=== PATIENT | male | born 1945 | race African-American/Black ===

== ENCOUNTER 2017-01-17 22:47 | Inpatient (IN) ==
[2017-01-17 23:53] LABS: Basophils % 0.3 % (0.0-0.8); Eosinophils # 0.1 10*3/uL (0.0-0.87); Eosinophils % 1.3 % (0.00-10.9); Hematocrit 33.2 VOL% (42.0-52.0); Hemoglobin 10.9 GM/DL (14.0-18.0); Immature Granulocytes % 0.4 %; Immature Granulocytes Absolute 0.03 #; Lymphocytes # 0.8 10*3/uL (1.4-4.0); Mean Corpuscular HGB Conc 32.8 GM/DL (32-36); Mean Corpuscular Hemoglobin 28 PG (27-34); Mean Corpuscular Volume 84.1 FL (87-102); Mean Platelet Volume 10.9 FL (9.6-12.0); Monocytes # 0.7 10*3/uL (0.11-0.8); Monocytes % 9.6 % (1.7-12.7); Neutrophils # 5.6 10*3/uL (1.4-7.4); Neutrophils % 77.4 % (38.7-73.9); Platelet Count 261 T/CUMM (130-400); Red Blood Count 3.95 MC/CUMM (3.8-5.5); Red Cell Distribution Width 17.8 % (9.3-17.3); White Blood Count 7.2 T/CUMM (4-12)
[2017-01-17 23:57] LABS: VBG Base Excess 5.3 MEQ/L (0-4); VBG HCO3 29.2 MEQ/L (24-28); VBG PCO2 45.5 MMHG (41-51); VBG PH 7.432
[2017-01-18 00:20] LABS: Alanine Aminotransferase 44 U/L (16-61); Albumin 3.4 G/DL (3.4-5.0); Alkaline Phosphatase 112 U/L (45-117); Aspartate Amino Transferase 25 U/L (0-37); Bilirubin,Total < 0.39 MG/DL (0.2-1.0); Blood Urea Nitrogen 34 MG/DL (7-18); Calcium 9.1 MG/DL (8.5-10.1); Glucose 97 MG/DL (74-106); Osmolality,Calculated 286.4 MOS/KG (273-304); Potassium 3.5 MMOL/L (3.5-5.1); Sodium 140 MMOL/L (136-145); Total Protein 7.2 G/DL (6.4-8.3)
[2017-01-18] MEDS ORDERED: PANTOPRAZOLE 40 MG VIAL IV STA (02:35)
[2017-01-18] MEDS ORDERED: PANTOPRAZOLE 40 MG VIAL IV ONE (04:56)
[2017-01-18] MEDS ORDERED: ONDANSETRON 4 MG/2 ML VIAL IV PRN (05:41)
[2017-01-18] MEDS: MORPHINE 2 MG/1 ML SYRINGE IV PRN ×2 (08:25→18:04)
[2017-01-18] MEDS: ENOXAPARIN 40 MG/0.4 ML SYRINGE SUBCUT SCH (08:25)
[2017-01-18] MEDS: SODIUM CHLORIDE 0.9% 1,000 ML IV SCH ×2 (08:25→18:04)
[2017-01-18 08:31] LABS: Amorphous Crystals,Urine Few /HPF (Few); Apearance,Urine CLOUDY (Clear); Bilirubin,Urine Negative (Negative); Blood, Urine Negative (Negative); Glucose,Urine (UA) Negative (Negative); Ketones,Urine Negative (Negative); Nitrite,Urine Negative (Negative); Protein,Urine Negative; RBC,Urine 4 /HPF (0-4); Urine Color Yellow (Yellow); Urine Specific Gravity 1.028 (1.001-1.035); Urine Urobilinogen < 2.0 EU/DL (0.2-1.0); WBC,Urine 4 /HPF (0-6)
[2017-01-18] MEDS: LEVOFLOXACIN INJ 750 MG in PREMIX 1 EACH IV SCH (08:33)
[2017-01-18 08:46] LABS: Magnesium 2.7 MG/DL (1.8-2.4); Risk Ratio 2.39; VLDL CHOLESTEROL 23.8 MG/DL
[2017-01-18] MEDS: ALBUTEROL/IPRATROPIUM 3 ML NEB RESP TX SCH ×2 (13:30→19:21)
[2017-01-18] MEDS: clonazePAM 0.5 MG TABLET PEG PRN (14:18)
[2017-01-18] MEDS: ATORVASTATIN 40 MG TABLET PEG SCH (20:43)
[2017-01-19] MEDS: ALBUTEROL/IPRATROPIUM 3 ML NEB RESP TX SCH ×4 (00:24→19:05)
[2017-01-19] MEDS: clonazePAM 0.5 MG TABLET PEG PRN ×2 (01:24→21:46)
[2017-01-19] MEDS: SODIUM CHLORIDE 0.9% 1,000 ML IV SCH ×3 (02:43→21:05)
[2017-01-19 05:31] LABS: Basophils % 0.1 % (0.0-0.8); Eosinophils # 0.2 10*3/uL (0.0-0.87); Eosinophils % 2.2 % (0.00-10.9); Hematocrit 31.4 VOL% (42.0-52.0); Immature Granulocytes % 0.4 %; Immature Granulocytes Absolute 0.03 #; Lymphocytes # 0.7 10*3/uL (1.4-4.0); Mean Corpuscular HGB Conc 31.8 GM/DL (32-36); Mean Corpuscular Hemoglobin 27 PG (27-34); Mean Corpuscular Volume 85.3 FL (87-102); Mean Platelet Volume 12.2 FL (9.6-12.0); Monocytes # 0.5 10*3/uL (0.11-0.8); Monocytes % 7.7 % (1.7-12.7); Neutrophils # 5.5 10*3/uL (1.4-7.4); Neutrophils % 79.6 % (38.7-73.9); Platelet Count 264 T/CUMM (130-400); Red Blood Count 3.68 MC/CUMM (3.8-5.5); Red Cell Distribution Width 17.9 % (9.3-17.3)
[2017-01-19 05:56] LABS: Bilirubin,Total 0.7 MG/DL (0.2-1.0); Calcium 8.3 MG/DL (8.5-10.1); Potassium 3.9 MMOL/L (3.5-5.1); Total Protein 6.7 G/DL (6.4-8.3)
[2017-01-19] MEDS: LEVOFLOXACIN INJ 750 MG in PREMIX 1 EACH IV SCH (05:59)
[2017-01-19 06:01] LABS: Calcium 8.5 MG/DL (8.5-10.1); Potassium 3.9 MMOL/L (3.5-5.1); Prealbumin 24.8 MG/DL (20-40)
[2017-01-19] MEDS: ENOXAPARIN 40 MG/0.4 ML SYRINGE SUBCUT SCH (09:15)
[2017-01-19] MEDS: TAMSULOSIN 0.4 MG CAPSULE PO SCH (09:15)
[2017-01-19] MEDS: amLODIPine 5 MG TABLET PEG SCH (09:16)
[2017-01-19] MEDS: FUROSEMIDE 40 MG TABLET PEG SCH (09:16)
[2017-01-19] MEDS: ASPIRIN 325 MG TABLET PEG SCH (09:16)
[2017-01-19] MEDS: predniSONE 5 MG TABLET PEG SCH (09:16)
[2017-01-19] MEDS: MORPHINE 2 MG/1 ML SYRINGE IV PRN (12:39)
[2017-01-19] MEDS: POLYETHYLENE GLYCOL POWDER 17 GM PACK PEG SCH ×3 (14:20→21:47)
[2017-01-19] MEDS ORDERED: MAGNESIUM CITRATE 300 ML BOTTLE PO ONE (21:00)
[2017-01-19] MEDS: ATORVASTATIN 40 MG TABLET PEG SCH (21:46)
[2017-01-20] MEDS: ALBUTEROL/IPRATROPIUM 3 ML NEB RESP TX SCH ×4 (00:48→19:14)
[2017-01-20] MEDS: LEVOFLOXACIN INJ 750 MG in PREMIX 1 EACH IV SCH (05:55)
[2017-01-20] MEDS: SODIUM CHLORIDE 0.9% 1,000 ML IV SCH ×2 (08:38→13:12)
[2017-01-20] MEDS: TAMSULOSIN 0.4 MG CAPSULE PO SCH (08:52)
[2017-01-20] MEDS: FUROSEMIDE 40 MG TABLET PEG SCH (08:52)
[2017-01-20] MEDS: ENOXAPARIN 40 MG/0.4 ML SYRINGE SUBCUT SCH (08:52)
[2017-01-20] MEDS: ASPIRIN 325 MG TABLET PEG SCH (08:52)
[2017-01-20] MEDS: clonazePAM 0.5 MG TABLET PEG PRN ×2 (08:53→23:39)
[2017-01-20] MEDS: amLODIPine 5 MG TABLET PEG SCH (08:53)
[2017-01-20] MEDS: predniSONE 5 MG TABLET PEG SCH (08:53)
[2017-01-20] MEDS: POLYETHYLENE GLYCOL POWDER 17 GM PACK PEG SCH ×4 (08:53→20:56)
[2017-01-20] MEDS: MORPHINE 2 MG/1 ML SYRINGE IV PRN ×2 (11:00→23:39)
[2017-01-20] MEDS ORDERED: SODIUM CHLORIDE 0.9% 1,000 ML IV SCH (18:18)
[2017-01-20] MEDS ORDERED: hydrALAZINE 25 MG TABLET ONE (20:50)
[2017-01-20] MEDS: ATORVASTATIN 40 MG TABLET PEG SCH (20:55)
[2017-01-21] MEDS: ALBUTEROL/IPRATROPIUM 3 ML NEB RESP TX SCH ×4 (00:23→19:18)
[2017-01-21] MEDS: LEVOFLOXACIN INJ 750 MG in PREMIX 1 EACH IV SCH (06:45)
[2017-01-21] MEDS: FUROSEMIDE 40 MG TABLET PEG SCH (08:34)
[2017-01-21] MEDS: predniSONE 5 MG TABLET PEG SCH (08:34)
[2017-01-21] MEDS: TAMSULOSIN 0.4 MG CAPSULE PO SCH (08:34)
[2017-01-21] MEDS: clonazePAM 0.5 MG TABLET PEG PRN ×2 (08:34→21:28)
[2017-01-21] MEDS: amLODIPine 10 MG TABLET PEG SCH (08:34)
[2017-01-21] MEDS: POLYETHYLENE GLYCOL POWDER 17 GM PACK PEG SCH (08:52)
[2017-01-21] MEDS: SODIUM CHLORIDE 0.45% 1,000 ML IV SCH ×2 (08:54→21:28)
[2017-01-21 10:05] LABS: Basophils % 0.4 % (0.0-0.8); Eosinophils # 0.2 10*3/uL (0.0-0.87); Eosinophils % 2.8 % (0.00-10.9); Hemoglobin 11.9 GM/DL (14.0-18.0); Immature Granulocytes % 0.3 %; Immature Granulocytes Absolute 0.02 #; Lymphocytes # 0.7 10*3/uL (1.4-4.0); Lymphocytes % 10.2 % (21.2-54.2); Mean Corpuscular HGB Conc 33.1 GM/DL (32-36); Mean Corpuscular Hemoglobin 28 PG (27-34); Mean Corpuscular Volume 83.7 FL (87-102); Monocytes # 0.6 10*3/uL (0.11-0.8); Monocytes % 8.5 % (1.7-12.7); Neutrophils # 5.5 10*3/uL (1.4-7.4); Neutrophils % 77.8 % (38.7-73.9); Platelet Count 277 T/CUMM (130-400); Red Cell Distribution Width 17.5 % (9.3-17.3)
[2017-01-21] MEDS ORDERED: POLYETHYLENE GLYCOL 3350/ELECTROLYTES 4,000 ML BOTTLE PEG ONE (18:00)
[2017-01-21] MEDS ORDERED: POLYETHYLENE GLYCOL 3350/ELECTROLYTES 4,000 ML BOTTLE PO ONE (18:00)
[2017-01-21] MEDS ORDERED: SKIN HEALING OINT (AQUAPHOR) 50 GM TUBE TOP PRN (18:39)
[2017-01-21] MEDS: ATORVASTATIN 40 MG TABLET PEG SCH (21:27)
[2017-01-22] MEDS: ALBUTEROL/IPRATROPIUM 3 ML NEB RESP TX SCH ×4 (00:31→19:27)
[2017-01-22 06:31] LABS: Calcium 8.6 MG/DL (8.5-10.1); Magnesium 2.2 MG/DL (1.8-2.4); Osmolality,Calculated 280.1 MOS/KG (273-304); Phosphorous 3.2 MG/DL (2.5-4.9); Potassium 3.5 MMOL/L (3.5-5.1); Prealbumin 22.5 MG/DL (20-40)
[2017-01-22] MEDS ORDERED: LIDOCAINE 100 MG/5 ML SYRINGE ONE (09:00)
[2017-01-22] MEDS ORDERED: PROPOFOL 200 MG/20 ML VIAL IV ONE (09:00)
[2017-01-22] MEDS: amLODIPine 10 MG TABLET PEG SCH (10:50)
[2017-01-22] MEDS: FUROSEMIDE 40 MG TABLET PEG SCH (10:50)
[2017-01-22] MEDS: TAMSULOSIN 0.4 MG CAPSULE PO SCH (10:50)
[2017-01-22] MEDS: LEVOFLOXACIN INJ 750 MG in PREMIX 1 EACH IV SCH (10:50)
[2017-01-22] MEDS: predniSONE 5 MG TABLET PEG SCH (10:50)
[2017-01-22] MEDS: SODIUM CHLORIDE 0.45% 1,000 ML IV SCH (10:59)
[2017-01-22] MEDS: clonazePAM 0.5 MG TABLET PEG PRN (14:54)
[2017-01-22] MEDS: ATORVASTATIN 40 MG TABLET PEG SCH (21:16)
[2017-01-22] MEDS: WHEAT DEXTRIN POWDER 244 GM BOTTLE PEG SCH (21:22)
[2017-01-23] MEDS: ALBUTEROL/IPRATROPIUM 3 ML NEB RESP TX SCH ×2 (00:52→07:00)
[2017-01-23] MEDS: SODIUM CHLORIDE 0.45% 1,000 ML IV SCH (06:06)
[2017-01-23] MEDS: LEVOFLOXACIN INJ 750 MG in PREMIX 1 EACH IV SCH (06:06)
[2017-01-23] MEDS: predniSONE 5 MG TABLET PEG SCH (08:31)
[2017-01-23] MEDS: amLODIPine 10 MG TABLET PEG SCH (08:31)
[2017-01-23] MEDS: clonazePAM 0.5 MG TABLET PEG PRN (08:31)
[2017-01-23] MEDS: TAMSULOSIN 0.4 MG CAPSULE PO SCH (08:31)
[2017-01-23] MEDS: FUROSEMIDE 40 MG TABLET PEG SCH (08:31)
[2017-01-23] MEDS: WHEAT DEXTRIN POWDER 244 GM BOTTLE PEG SCH (08:31)
[2017-01-23 11:38] VITALS: BP 120/71
== END 2017-01-23 12:30 | DRG 388 ==
LOC: EDUNIT# → N.ED 22:47 → SUATTDRO 01-18 03:25 → N.EDINP 01-18 03:25 → N.5E 01-18 04:53
PROVIDERS: ADMIT Internal Medicine; ATTEND Internal Medicine

== ENCOUNTER 2017-02-20 10:42 | Inpatient (IN) ==
[2017-02-20] MEDS ORDERED: ASPIRIN 325 MG TABLET PO STA (11:06)
[2017-02-20] MEDS ORDERED: SODIUM CHLORIDE 0.9% 1,000 ML IV STA (11:06)
[2017-02-20] MEDS ORDERED: MORPHINE 2 MG/1 ML SYRINGE IV STA ×2 (11:06→11:43)
[2017-02-20] MEDS ORDERED: ONDANSETRON 4 MG/2 ML VIAL IV STA (11:06)
[2017-02-20 11:17] LABS: Basophils % 0.3 % (0.0-0.8); Eosinophils # 0.1 10*3/uL (0.0-0.87); Eosinophils % 0.9 % (0.00-10.9); Immature Granulocytes % 0.3 %; Immature Granulocytes Absolute 0.03 #; Lymphocytes # 0.6 10*3/uL (1.4-4.0); Lymphocytes % 6.6 % (21.2-54.2); Mean Corpuscular HGB Conc 32.4 GM/DL (32-36); Mean Corpuscular Hemoglobin 27 PG (27-34); Mean Corpuscular Volume 84.2 FL (87-102); Mean Platelet Volume 11.1 FL (9.6-12.0); Monocytes # 0.6 10*3/uL (0.11-0.8); Monocytes % 6.8 % (1.7-12.7); Neutrophils # 7.8 10*3/uL (1.4-7.4); Neutrophils % 85.1 % (38.7-73.9); Platelet Count 290 T/CUMM (130-400); Red Blood Count 4.04 MC/CUMM (3.8-5.5); Red Cell Distribution Width 18.6 % (9.3-17.3); White Blood Count 9.2 T/CUMM (4-12)
[2017-02-20] MEDS ORDERED: MORPHINE 2 MG/1 ML SYRINGE ONE ×2 (11:17→11:40)
[2017-02-20] MEDS ORDERED: ASPIRIN 325 MG TABLET ONE (11:17)
[2017-02-20] MEDS ORDERED: ONDANSETRON 4 MG/2 ML VIAL ONE (11:17)
[2017-02-20] MEDS ORDERED: LORazepam 2 MG/1 ML VIAL ONE (11:24)
[2017-02-20 11:37] LABS: PT Patient Result 10.9 SECS; Partial Thromboplastin Time 24.4 SECS (0-40)
[2017-02-20] MEDS ORDERED: LORazepam 2 MG/1 ML VIAL IV STA (11:43)
[2017-02-20 11:57] LABS: Albumin 3.8 G/DL (3.4-5.0); Bilirubin,Total 0.5 MG/DL (0.2-1.0); Calcium 9.6 MG/DL (8.5-10.1); Osmolality,Calculated 291.1 MOS/KG (273-304); Potassium 3.7 MMOL/L (3.5-5.1); Total Protein 8.6 G/DL (6.4-8.3)
[2017-02-20] MEDS ORDERED: ENOXAPARIN 60 MG/0.6 ML SYRINGE SUBCUT STA (12:54)
[2017-02-20 13:01] LABS: ABG Base Excess -0.2 MMOL/L (-2.5-2.5); ABG HCO3 24.2 MMOL/L (20-26); ABG Oxygen Saturation 96.7 % (95-100); ABG PCO2 39.2 MM HG (35-48); ABG PH 7.402 (7.35-7.45); ABG PO2 87.7 MM HG (80-95); ABG TCO2 22.1 MMOL/L (23-27)
[2017-02-20] MEDS ORDERED: ENOXAPARIN 60 MG/0.6 ML SYRINGE ONE (13:44)
[2017-02-20] MEDS ORDERED: LACTULOSE 20 GM/30 ML UDCUP PEG PRN (13:47)
[2017-02-20] MEDS: MORPHINE 2 MG/1 ML SYRINGE IV PRN (15:45)
[2017-02-20] MEDS ORDERED: cefTRIAXone 1,000 MG in SYRINGE 1 EACH IV SCH (16:00)
[2017-02-20] MEDS: LORazepam 2 MG/1 ML VIAL IV PRN (16:00)
[2017-02-20] MEDS ORDERED: FUROSEMIDE 40 MG/4 ML VIAL IV ONE (17:59)
[2017-02-20] MEDS ORDERED: FUROSEMIDE 40 MG/4 ML VIAL ONE (18:07)
[2017-02-20] MEDS: methylPREDNISolone SOD SUC 40 MG/1 ML VIAL IV SCH (18:14)
[2017-02-20 19:28] LABS: Apearance,Urine CLEAR (Clear); Bilirubin,Urine Negative (Negative); Blood, Urine Negative (Negative); Glucose,Urine (UA) Negative (Negative); Ketones,Urine Negative (Negative); Mucus,Urine Occasional /LPF (Occasional); Nitrite,Urine Negative (Negative); Protein,Urine 100 MG/DL; RBC,Urine <1 /HPF (0-4); Urine Color Yellow (Yellow); Urine Urobilinogen < 2.0 EU/DL (0.2-1.0); WBC,Urine 3 /HPF (0-6)
[2017-02-20] MEDS: ALBUTEROL/IPRATROPIUM 3 ML NEB RESP TX SCH (20:31)
[2017-02-20] MEDS: WHEAT DEXTRIN POWDER 244 GM BOTTLE PEG SCH (20:57)
[2017-02-21] MEDS: ALBUTEROL/IPRATROPIUM 3 ML NEB RESP TX SCH ×4 (01:02→19:44)
[2017-02-21] MEDS: methylPREDNISolone SOD SUC 40 MG/1 ML VIAL IV SCH ×3 (01:25→17:33)
[2017-02-21] MEDS ORDERED: ENOXAPARIN 60 MG/0.6 ML SYRINGE SUBCUT SCH (02:00)
[2017-02-21 05:35] LABS: Basophils % 0.1 % (0.0-0.8); Hematocrit 33.2 VOL% (42.0-52.0); Hemoglobin 10.5 GM/DL (14.0-18.0); Immature Granulocytes % 0.4 %; Immature Granulocytes Absolute 0.03 #; Lymphocytes # 0.4 10*3/uL (1.4-4.0); Lymphocytes % 5.2 % (21.2-54.2); Mean Corpuscular HGB Conc 31.6 GM/DL (32-36); Mean Corpuscular Hemoglobin 27 PG (27-34); Mean Corpuscular Volume 83.8 FL (87-102); Mean Platelet Volume 11.4 FL (9.6-12.0); Monocytes # 0.1 10*3/uL (0.11-0.8); Monocytes % 0.7 % (1.7-12.7); Neutrophils # 7.9 10*3/uL (1.4-7.4); Neutrophils % 93.6 % (38.7-73.9); Platelet Count 303 T/CUMM (130-400); Red Blood Count 3.96 MC/CUMM (3.8-5.5); Red Cell Distribution Width 18.4 % (9.3-17.3); White Blood Count 8.5 T/CUMM (4-12)
[2017-02-21 06:08] LABS: Lymphocytes 3 % (20-55); Segmented Neutrophils 95 % (50-85); Total Cells Counted 100
[2017-02-21 06:09] LABS: Hypochromasia 2+; Macrocytosis 1+; Platelet Estimate Adequate; Polychromasia Slight; Target Cells Slight
[2017-02-21 06:10] LABS: Calcium 9.5 MG/DL (8.5-10.1); Osmolality,Calculated 293.8 MOS/KG (273-304); Potassium 4.1 MMOL/L (3.5-5.1)
[2017-02-21] MEDS ORDERED: predniSONE 5 MG TABLET PEG SCH (08:00)
[2017-02-21] MEDS: ASPIRIN 325 MG TABLET PEG SCH (08:14)
[2017-02-21] MEDS: FUROSEMIDE 40 MG TABLET PEG SCH (08:14)
[2017-02-21] MEDS: ENOXAPARIN 40 MG/0.4 ML SYRINGE SUBCUT SCH (08:15)
[2017-02-21] MEDS: POLYETHYLENE GLYCOL POWDER 17 GM PACK PEG SCH (08:15)
[2017-02-21] MEDS: WHEAT DEXTRIN POWDER 244 GM BOTTLE PEG SCH (08:15)
[2017-02-21] MEDS: COLLAGENASE OINT 30 GM TUBE TOP SCH (08:16)
[2017-02-21] MEDS ORDERED: amLODIPine 5 MG TABLET PEG SCH (09:00)
[2017-02-21] MEDS: DOXYCYCLINE HYCLATE 100 MG CAPSULE PO SCH ×2 (09:55→22:31)
[2017-02-21] MEDS: amLODIPine 5 MG TABLET PEG SCH ×2 (09:55→17:33)
[2017-02-21] MEDS: MORPHINE 2 MG/1 ML SYRINGE IV PRN ×3 (10:18→22:30)
[2017-02-21] MEDS ORDERED: hydrALAZINE 20 MG/1 ML VIAL IV ONE (14:52)
[2017-02-21] MEDS: LORazepam 2 MG/1 ML VIAL IV PRN (15:35)
[2017-02-21] MEDS ORDERED: ONDANSETRON 4 MG/2 ML VIAL IV PRN (17:03)
[2017-02-21] MEDS: clonazePAM 0.5 MG TABLET PEG PRN (17:33)
[2017-02-21] MEDS ORDERED: hydrALAZINE 20 MG/1 ML VIAL IV PRN (17:41)
[2017-02-22] MEDS: ALBUTEROL/IPRATROPIUM 3 ML NEB RESP TX SCH ×4 (00:25→19:30)
[2017-02-22] MEDS: methylPREDNISolone SOD SUC 40 MG/1 ML VIAL IV SCH ×3 (01:26→18:03)
[2017-02-22 07:19] LABS: Calcium 9.2 MG/DL (8.5-10.1); Osmolality,Calculated 296.8 MOS/KG (273-304)
[2017-02-22] MEDS: MORPHINE 2 MG/1 ML SYRINGE IV PRN ×3 (08:54→20:39)
[2017-02-22] MEDS: ENOXAPARIN 40 MG/0.4 ML SYRINGE SUBCUT SCH (12:10)
[2017-02-22] MEDS: ASPIRIN 325 MG TABLET PEG SCH (12:19)
[2017-02-22] MEDS: DOXYCYCLINE HYCLATE 100 MG CAPSULE PO SCH ×2 (12:20→20:45)
[2017-02-22] MEDS: FUROSEMIDE 40 MG TABLET PEG SCH (12:20)
[2017-02-22] MEDS: amLODIPine 5 MG TABLET PEG SCH (12:20)
[2017-02-22] MEDS: LORazepam 2 MG/1 ML VIAL IV PRN (22:47)
[2017-02-23] MEDS: ALBUTEROL/IPRATROPIUM 3 ML NEB RESP TX SCH ×2 (01:11→07:45)
[2017-02-23] MEDS: methylPREDNISolone SOD SUC 40 MG/1 ML VIAL IV SCH ×2 (02:11→09:51)
[2017-02-23] MEDS: LORazepam 2 MG/1 ML VIAL IV PRN (02:52)
[2017-02-23] MEDS: MORPHINE 2 MG/1 ML SYRINGE IV PRN (02:56)
[2017-02-23] MEDS: clonazePAM 0.5 MG TABLET PEG PRN (09:50)
[2017-02-23] MEDS: ASPIRIN 325 MG TABLET PEG SCH (09:51)
[2017-02-23] MEDS: DOXYCYCLINE HYCLATE 100 MG CAPSULE PO SCH (09:51)
[2017-02-23] MEDS: amLODIPine 5 MG TABLET PEG SCH (09:51)
[2017-02-23] MEDS: FUROSEMIDE 40 MG TABLET PEG SCH (09:51)
[2017-02-23] MEDS: ENOXAPARIN 40 MG/0.4 ML SYRINGE SUBCUT SCH (09:51)
[2017-02-23] MEDS: POLYETHYLENE GLYCOL POWDER 17 GM PACK PEG SCH (09:51)
[2017-02-23] MEDS: COLLAGENASE OINT 30 GM TUBE TOP SCH (10:41)
[2017-02-23 13:30] VITALS: BP 162/73
[2017-02-24] MEDS ORDERED: INFLUENZA VIRUS VACCINE 0.5 ML SYRINGE IM ONE (09:00)
== END 2017-02-23 13:32 | DRG 192 ==
LOC: EDBD → EDUNIT# → N.ED 10:42 → SUATTDRO 13:01 → N.EDINP 13:01 → N.ICU 15:33 → N.4E 02-21 14:06
PROVIDERS: ADMIT Internal Medicine; ATTEND Internal Medicine Cardiovascular Disease

== ENCOUNTER 2017-03-19 12:41 | Inpatient (IN) ==
[2017-03-19 14:14] LABS: Basophils % 0.2 % (0.0-0.8); Eosinophils # 0.1 10*3/uL (0.0-0.87); Eosinophils % 0.5 % (0.00-10.9); Hematocrit 23.3 VOL% (42.0-52.0); Hemoglobin 7.4 GM/DL (14.0-18.0); Immature Granulocytes % 0.6 %; Immature Granulocytes Absolute 0.08 #; Lymphocytes # 0.9 10*3/uL (1.4-4.0); Lymphocytes % 7.1 % (21.2-54.2); Mean Corpuscular HGB Conc 31.8 GM/DL (32-36); Mean Corpuscular Hemoglobin 27 PG (27-34); Mean Platelet Volume 10.6 FL (9.6-12.0); Monocytes # 0.7 10*3/uL (0.11-0.8); Monocytes % 5.2 % (1.7-12.7); NRBC # 0.09 10*3/uL; Neutrophils # 11.4 10*3/uL (1.4-7.4); Neutrophils % 86.4 % (38.7-73.9); Platelet Count 313 T/CUMM (130-400); Red Blood Count 2.71 MC/CUMM (3.8-5.5); Red Cell Distribution Width 18.3 % (9.3-17.3); White Blood Count 13.2 T/CUMM (4-12)
[2017-03-19 14:27] LABS: Calcium 8.3 MG/DL (8.5-10.1); Osmolality,Calculated 305.6 MOS/KG (273-304); PT Patient Result 10.5 SECS; Partial Thromboplastin Time 24.8 SECS (0-40); Potassium 3.6 MMOL/L (3.5-5.1)
[2017-03-19] MEDS ORDERED: diphenhydrAMINE CAP 25 MG CAPSULE PO PRN (14:52)
[2017-03-19] MEDS ORDERED: ACETAMINOPHEN 325 MG TABLET PO PRN (14:52)
[2017-03-19] MEDS ORDERED: PROMETHAZINE 25 MG/1 ML VIAL IM PRN (14:52)
[2017-03-19] MEDS ORDERED: MORPHINE 2 MG/1 ML SYRINGE IV PRN (14:52)
[2017-03-19] MEDS ORDERED: SODIUM CHLORIDE 0.9% 1,000 ML IV PRN (15:03)
[2017-03-19 15:09] LABS: Hematocrit 23.1 VOL% (42.0-52.0); Hemoglobin 7.4 GM/DL (14.0-18.0)
[2017-03-19] MEDS ORDERED: POLYETHYLENE GLYCOL 3350/ELECTROLYTES 4,000 ML BOTTLE PER TUBE ONE (18:00)
[2017-03-19] MEDS: BISACODYL 5 MG TABLET PEG SCH (18:41)
[2017-03-19] MEDS: LANSOPRAZOLE ODT 30 MG TABLET PO SCH ×2 (18:44→21:16)
[2017-03-19] MEDS: clonazePAM 0.5 MG TABLET PEG SCH ×2 (19:04→21:16)
[2017-03-19] MEDS: predniSONE 5 MG TABLET PEG SCH (19:05)
[2017-03-19] MEDS: ALBUTEROL/IPRATROPIUM 3 ML NEB RESP TX SCH (19:30)
[2017-03-19] MEDS: SODIUM CHLORIDE 0.9% 1,000 ML IV SCH ×3 (20:32→22:21)
[2017-03-19] MEDS: POLYETHYLENE GLYCOL POWDER 17 GM PACK PEG SCH (20:47)
[2017-03-19] MEDS: COLLAGENASE OINT 30 GM TUBE TOP SCH (20:48)
[2017-03-19] MEDS: SERTRALINE 25 MG TABLET PEG SCH (21:16)
[2017-03-20] MEDS: ALBUTEROL/IPRATROPIUM 3 ML NEB RESP TX SCH ×4 (01:39→21:05)
[2017-03-20 02:25] LABS: Albumin 2.9 G/DL (3.4-5.0); Bilirubin,Total 0.8 MG/DL (0.2-1.0); Calcium 8.3 MG/DL (8.5-10.1); Magnesium 2.4 MG/DL (1.8-2.4); Osmolality,Calculated 302.3 MOS/KG (273-304); Potassium 3.6 MMOL/L (3.5-5.1); Total Protein 6.1 G/DL (6.4-8.3)
[2017-03-20] MEDS: BISACODYL 5 MG TABLET PEG SCH ×2 (02:28→10:41)
[2017-03-20 02:37] LABS: Basophils % 0.3 % (0.0-0.8); Eosinophils # 0.1 10*3/uL (0.0-0.87); Eosinophils % 1.3 % (0.00-10.9); Hematocrit 28.4 VOL% (42.0-52.0); Hemoglobin 9.3 GM/DL (14.0-18.0); Immature Granulocytes % 1.3 %; Immature Granulocytes Absolute 0.13 #; Mean Corpuscular HGB Conc 32.7 GM/DL (32-36); Mean Corpuscular Hemoglobin 28 PG (27-34); Mean Corpuscular Volume 84.3 FL (87-102); Mean Platelet Volume 11.8 FL (9.6-12.0); Monocytes # 0.8 10*3/uL (0.11-0.8); Monocytes % 7.5 % (1.7-12.7); NRBC # 0.11 10*3/uL; Neutrophils # 8.2 10*3/uL (1.4-7.4); Neutrophils % 79.6 % (38.7-73.9); Platelet Count 281 T/CUMM (130-400); Red Blood Count 3.37 MC/CUMM (3.8-5.5); Red Cell Distribution Width 17.4 % (9.3-17.3); White Blood Count 10.3 T/CUMM (4-12)
[2017-03-20 02:47] LABS: PT Patient Result 10.8 SECS
[2017-03-20] MEDS: LANSOPRAZOLE ODT 30 MG TABLET PO SCH ×2 (10:39→21:38)
[2017-03-20] MEDS: clonazePAM 0.5 MG TABLET PEG SCH ×2 (10:39→21:38)
[2017-03-20] MEDS: FUROSEMIDE 40 MG TABLET PEG SCH (10:39)
[2017-03-20] MEDS: amLODIPine 10 MG TABLET PEG SCH (10:40)
[2017-03-20] MEDS: predniSONE 5 MG TABLET PEG SCH (10:40)
[2017-03-20] MEDS: SODIUM CHLORIDE 0.9% 1,000 ML IV SCH (10:42)
[2017-03-20] MEDS: SODIUM CHLORIDE 0.45% 1,000 ML IV SCH (21:34)
[2017-03-20] MEDS: SERTRALINE 25 MG TABLET PEG SCH (21:38)
[2017-03-21] MEDS: SODIUM CHLORIDE 0.45% 1,000 ML IV SCH ×2 (00:33→11:20)
[2017-03-21] MEDS: ALBUTEROL/IPRATROPIUM 3 ML NEB RESP TX SCH ×3 (00:40→13:42)
[2017-03-21 08:00] LABS: Basophils % 0.3 % (0.0-0.8); Eosinophils # 0.2 10*3/uL (0.0-0.87); Eosinophils % 2.1 % (0.00-10.9); Hematocrit 27.1 VOL% (42.0-52.0); Hemoglobin 8.6 GM/DL (14.0-18.0); Immature Granulocytes % 0.5 %; Immature Granulocytes Absolute 0.05 #; Lymphocytes # 1.2 10*3/uL (1.4-4.0); Mean Corpuscular HGB Conc 31.7 GM/DL (32-36); Mean Corpuscular Hemoglobin 27 PG (27-34); Mean Corpuscular Volume 86.3 FL (87-102); Mean Platelet Volume 12.3 FL (9.6-12.0); Monocytes # 0.7 10*3/uL (0.11-0.8); Monocytes % 6.6 % (1.7-12.7); NRBC # 0.07 10*3/uL; Neutrophils # 8.4 10*3/uL (1.4-7.4); Neutrophils % 79.5 % (38.7-73.9); Platelet Count 276 T/CUMM (130-400); Red Blood Count 3.14 MC/CUMM (3.8-5.5); Red Cell Distribution Width 17.6 % (9.3-17.3); White Blood Count 10.6 T/CUMM (4-12)
[2017-03-21] MEDS: LANSOPRAZOLE ODT 30 MG TABLET PO SCH (09:14)
[2017-03-21] MEDS: amLODIPine 10 MG TABLET PEG SCH (09:14)
[2017-03-21] MEDS: FUROSEMIDE 40 MG TABLET PEG SCH (09:14)
[2017-03-21] MEDS: clonazePAM 0.5 MG TABLET PEG SCH (09:14)
[2017-03-21] MEDS: POLYETHYLENE GLYCOL POWDER 17 GM PACK PEG SCH (09:14)
[2017-03-21] MEDS: predniSONE 5 MG TABLET PEG SCH (09:14)
[2017-03-21] MEDS: COLLAGENASE OINT 30 GM TUBE TOP SCH (09:20)
[2017-03-21 11:03] LABS: Troponin I Only 0.025 NG/ML (0.00-0.045)
[2017-03-21 11:31] VITALS: BP 129/58
[2017-03-21] MEDS ORDERED: ETOMIDATE 20 MG/10 ML VIAL IV ONE (12:12)
[2017-03-21] MEDS ORDERED: PROPOFOL 200 MG/20 ML VIAL IV ONE (12:12)
[2017-03-21] MEDS ORDERED: LIDOCAINE 100 MG/5 ML SYRINGE ONE (12:12)
== END 2017-03-21 14:45 | DRG 394 ==
LOC: EDUNIT# → EDBD → N.ED 12:41 → N.EDINP 14:33 → N.5E 15:30 → N.CC 20:38 → N.3E 03-20 14:14
PROVIDERS: ADMIT Internal Medicine; ATTEND Internal Medicine

== ENCOUNTER 2017-03-23 20:14 | Inpatient (IN) ==
[2017-03-23] MEDS ORDERED: cloNIDine 0.1 MG TABLET PO STA (20:39)
[2017-03-23] MEDS ORDERED: LORazepam 2 MG/1 ML VIAL IV STA ×2 (20:39→21:25)
[2017-03-23] MEDS ORDERED: cloNIDine 0.1 MG TABLET ONE (20:44)
[2017-03-23] MEDS ORDERED: LORazepam 2 MG/1 ML VIAL ONE ×2 (20:45→21:28)
[2017-03-23] MEDS ORDERED: SODIUM CHLORIDE 0.9% 1,000 ML IV STA (20:46)
[2017-03-23 21:51] LABS: Basophils % 0.2 % (0.0-0.8); Eosinophils # 0.1 10*3/uL (0.0-0.87); Eosinophils % 0.4 % (0.00-10.9); Hemoglobin 9.5 GM/DL (14.0-18.0); Immature Granulocytes % 0.4 %; Immature Granulocytes Absolute 0.07 #; Lymphocytes # 1.7 10*3/uL (1.4-4.0); Lymphocytes % 10.7 % (21.2-54.2); Mean Corpuscular HGB Conc 31.7 GM/DL (32-36); Mean Corpuscular Hemoglobin 27 PG (27-34); Mean Platelet Volume 10.8 FL (9.6-12.0); Monocytes # 1.3 10*3/uL (0.11-0.8); Monocytes % 7.8 % (1.7-12.7); NRBC # 0.03 10*3/uL; Neutrophils % 80.5 % (38.7-73.9); Platelet Count 402 T/CUMM (130-400); Red Blood Count 3.49 MC/CUMM (3.8-5.5); Red Cell Distribution Width 17.8 % (9.3-17.3); White Blood Count 16.2 T/CUMM (4-12)
[2017-03-23] MEDS ORDERED: LEVOFLOXACIN INJ 750 MG in PREMIX 1 EACH IV STA (22:10)
[2017-03-23 22:13] LABS: Lactic Acid 1.6 MMOL/L (0.4-2.0)
[2017-03-23 22:14] LABS: Alanine Aminotransferase 29 U/L (16-61); Albumin 3.4 G/DL (3.4-5.0); Alkaline Phosphatase 184 U/L (45-117); Aspartate Amino Transferase 40 U/L (0-37); Bilirubin,Total < 0.39 MG/DL (0.2-1.0); Blood Urea Nitrogen 28 MG/DL (7-18); Calcium 8.8 MG/DL (8.5-10.1); Glucose 111 MG/DL (74-106); Osmolality,Calculated 298.4 MOS/KG (273-304); Potassium 3.8 MMOL/L (3.5-5.1); Sodium 147 MMOL/L (136-145); Total Protein 7.5 G/DL (6.4-8.3)
[2017-03-23] MEDS ORDERED: LEVOFLOXACIN INJ 150 ML IV ONE (22:42)
[2017-03-24] MEDS ORDERED: ALBUTEROL NEB SOLN 5 MG/ML 20 ML/BOTTLE CONT NEB ONE (02:38)
[2017-03-24] MEDS ORDERED: ALBUTEROL/IPRATROPIUM 3 ML NEB RESP TX PRN (02:38)
[2017-03-24] MEDS ORDERED: methylPREDNISolone SOD SUC 125 MG/2 ML VIAL IV ONE (02:38)
[2017-03-24] MEDS: ALBUTEROL/IPRATROPIUM 3 ML NEB RESP TX SCH ×6 (02:51→23:20)
[2017-03-24 03:42] LABS: Allen Test Positive
[2017-03-24 03:44] LABS: ABG Base Excess 1.9 MMOL/L (-2.5-2.5); ABG HCO3 25.1 MMOL/L (20-26); ABG Oxygen Saturation 97.1 % (95-100); ABG PCO2 33.4 MM HG (35-48); ABG PH 7.493 (7.35-7.45); ABG PO2 86.8 MM HG (80-95); ABG TCO2 26.1 MMOL/L (23-27)
[2017-03-24] MEDS ORDERED: LORazepam 2 MG/1 ML VIAL IV ONE (05:05)
[2017-03-24] MEDS: SODIUM CHLORIDE 0.45% 1,000 ML IV SCH ×3 (05:48→23:23)
[2017-03-24] MEDS: PANTOPRAZOLE 40 MG TABLET PO SCH ×2 (09:08→20:31)
[2017-03-24] MEDS: methylPREDNISolone SOD SUC 40 MG/1 ML VIAL IV SCH ×2 (09:08→16:39)
[2017-03-24] MEDS: amLODIPine 5 MG TABLET PEG SCH (09:08)
[2017-03-24] MEDS ORDERED: PIPERACILLIN/TAZOBACTAM 3,375 MG in SODIUM CHLORIDE 0.9% 100 ML IV SCH (13:00)
[2017-03-24] MEDS: hydrALAZINE 20 MG/1 ML VIAL IV PRN (14:03)
[2017-03-24] MEDS: VANCOMYCIN INJ 1,000 MG in SODIUM CHLORIDE 0.9% 250 ML IV SCH (14:16)
[2017-03-24] MEDS: ACETAMINOPHEN 325 MG/10.15 ML UDCUP PO PRN (18:10)
[2017-03-24] MEDS: LEVOFLOXACIN INJ 750 MG in PREMIX 1 EACH IV SCH (20:31)
[2017-03-25] MEDS: methylPREDNISolone SOD SUC 40 MG/1 ML VIAL IV SCH ×3 (00:18→15:38)
[2017-03-25] MEDS: VANCOMYCIN INJ 1,000 MG in SODIUM CHLORIDE 0.9% 250 ML IV SCH ×2 (02:05→14:24)
[2017-03-25] MEDS: ALBUTEROL/IPRATROPIUM 3 ML NEB RESP TX SCH ×5 (03:40→20:13)
[2017-03-25 03:50] LABS: ABG Base Excess 2.5 MMOL/L (-2.5-2.5); ABG HCO3 26.7 MMOL/L (20-26); ABG Oxygen Saturation 99.6 % (95-100); ABG PCO2 29.5 MM HG (35-48); ABG PH 7.533 (7.35-7.45); ABG TCO2 23.1 MMOL/L (23-27); Allen Test Positive
[2017-03-25 05:04] LABS: Apearance,Urine CLEAR (Clear); Bilirubin,Urine Negative (Negative); Blood, Urine Negative (Negative); Glucose,Urine (UA) Negative (Negative); Ketones,Urine Negative (Negative); Mucus,Urine Occasional /LPF (Occasional); Nitrite,Urine Negative (Negative); Protein,Urine Negative; RBC,Urine <1 /HPF (0-4); Urine Color Straw (Yellow); Urine Urobilinogen < 2.0 EU/DL (0.2-1.0)
[2017-03-25 06:06] LABS: Hematocrit 25.6 VOL% (42.0-52.0); Hemoglobin 8.1 GM/DL (14.0-18.0); Immature Granulocytes % 0.9 %; Immature Granulocytes Absolute 0.09 #; Lymphocytes # 0.4 10*3/uL (1.4-4.0); Lymphocytes % 3.4 % (21.2-54.2); Mean Corpuscular HGB Conc 31.6 GM/DL (32-36); Mean Corpuscular Hemoglobin 27 PG (27-34); Mean Corpuscular Volume 84.5 FL (87-102); Mean Platelet Volume 10.7 FL (9.6-12.0); Monocytes # 0.3 10*3/uL (0.11-0.8); Monocytes % 2.8 % (1.7-12.7); NRBC # 0.02 10*3/uL; Neutrophils # 9.8 10*3/uL (1.4-7.4); Neutrophils % 92.9 % (38.7-73.9); Platelet Count 318 T/CUMM (130-400); Red Blood Count 3.03 MC/CUMM (3.8-5.5); Red Cell Distribution Width 17.6 % (9.3-17.3); White Blood Count 10.5 T/CUMM (4-12)
[2017-03-25 06:41] LABS: Calcium 8.8 MG/DL (8.5-10.1); Osmolality,Calculated 291.8 MOS/KG (273-304); Potassium 3.6 MMOL/L (3.5-5.1)
[2017-03-25 06:44] LABS: Giant Platelets Few; Hypochromasia 1+; Lymphocytes 4 % (20-55); Platelet Estimate Adequate; Segmented Neutrophils 94 % (50-85); Total Cells Counted 100
[2017-03-25] MEDS: amLODIPine 5 MG TABLET PEG SCH (08:25)
[2017-03-25] MEDS: PANTOPRAZOLE 40 MG TABLET PO SCH ×2 (08:25→22:19)
[2017-03-25] MEDS: ACETAMINOPHEN 325 MG/10.15 ML UDCUP PO PRN (08:27)
[2017-03-25] MEDS: SODIUM CHLORIDE 0.45% 1,000 ML IV SCH (15:17)
[2017-03-25] MEDS: LEVOFLOXACIN INJ 750 MG in PREMIX 1 EACH IV SCH (22:20)
[2017-03-26] MEDS: ALBUTEROL/IPRATROPIUM 3 ML NEB RESP TX SCH ×6 (00:55→18:40)
[2017-03-26] MEDS: methylPREDNISolone SOD SUC 40 MG/1 ML VIAL IV SCH ×3 (01:05→18:26)
[2017-03-26] MEDS: VANCOMYCIN INJ 1,000 MG in SODIUM CHLORIDE 0.9% 250 ML IV SCH ×2 (01:15→14:07)
[2017-03-26 05:53] LABS: Hematocrit 26.4 VOL% (42.0-52.0); Hemoglobin 8.4 GM/DL (14.0-18.0); Immature Granulocytes % 0.7 %; Immature Granulocytes Absolute 0.07 #; Lymphocytes # 0.3 10*3/uL (1.4-4.0); Lymphocytes % 3.1 % (21.2-54.2); Mean Corpuscular HGB Conc 31.8 GM/DL (32-36); Mean Corpuscular Hemoglobin 27 PG (27-34); Mean Corpuscular Volume 83.3 FL (87-102); Mean Platelet Volume 11.1 FL (9.6-12.0); Monocytes # 0.4 10*3/uL (0.11-0.8); Monocytes % 3.7 % (1.7-12.7); NRBC # 0.03 10*3/uL; Neutrophils # 9.9 10*3/uL (1.4-7.4); Neutrophils % 92.5 % (38.7-73.9); Platelet Count 388 T/CUMM (130-400); Red Blood Count 3.17 MC/CUMM (3.8-5.5); Red Cell Distribution Width 17.2 % (9.3-17.3); White Blood Count 10.7 T/CUMM (4-12)
[2017-03-26 06:16] LABS: Giant Platelets Few; Hypochromasia 1+; Lymphocytes 1 % (20-55); Platelet Estimate Adequate; Segmented Neutrophils 96 % (50-85); Total Cells Counted 100
[2017-03-26 06:17] LABS: Microcytosis Slight; Ovalocytes Slight
[2017-03-26 06:33] LABS: Calcium 8.8 MG/DL (8.5-10.1); Osmolality,Calculated 293.8 MOS/KG (273-304); Potassium 3.9 MMOL/L (3.5-5.1)
[2017-03-26] MEDS: SODIUM CHLORIDE 0.45% 1,000 ML IV SCH (09:26)
[2017-03-26] MEDS: amLODIPine 5 MG TABLET PEG SCH (09:29)
[2017-03-26] MEDS: PANTOPRAZOLE 40 MG TABLET PO SCH ×2 (09:29→21:24)
[2017-03-26] MEDS ORDERED: ZINC OXIDE PASTE 113 GM TUBE TOP PRN (15:50)
[2017-03-26] MEDS: LEVOFLOXACIN INJ 750 MG in PREMIX 1 EACH IV SCH (21:24)
[2017-03-27] MEDS: methylPREDNISolone SOD SUC 40 MG/1 ML VIAL IV SCH ×3 (00:37→17:58)
[2017-03-27] MEDS: ALBUTEROL/IPRATROPIUM 3 ML NEB RESP TX SCH ×7 (01:13→23:20)
[2017-03-27] MEDS: VANCOMYCIN INJ 1,000 MG in SODIUM CHLORIDE 0.9% 250 ML IV SCH ×2 (01:37→14:28)
[2017-03-27] MEDS: SODIUM CHLORIDE 0.45% 1,000 ML IV SCH ×2 (02:00→17:58)
[2017-03-27 05:50] LABS: Calcium 8.7 MG/DL (8.5-10.1); Magnesium 2.8 MG/DL (1.8-2.4); Potassium 3.8 MMOL/L (3.5-5.1); Prealbumin 21.1 MG/DL (20-40)
[2017-03-27] MEDS: PANTOPRAZOLE 40 MG TABLET PO SCH ×2 (09:34→21:53)
[2017-03-27] MEDS: amLODIPine 5 MG TABLET PEG SCH (09:34)
[2017-03-27] MEDS: LEVOFLOXACIN INJ 750 MG in PREMIX 1 EACH IV SCH (21:53)
[2017-03-28] MEDS: VANCOMYCIN INJ 1,000 MG in SODIUM CHLORIDE 0.9% 250 ML IV SCH ×2 (01:42→14:16)
[2017-03-28] MEDS: methylPREDNISolone SOD SUC 40 MG/1 ML VIAL IV SCH ×3 (01:42→18:16)
[2017-03-28] MEDS: ALBUTEROL/IPRATROPIUM 3 ML NEB RESP TX SCH ×5 (03:10→19:27)
[2017-03-28] MEDS: PANTOPRAZOLE 40 MG TABLET PO SCH ×2 (09:17→20:46)
[2017-03-28] MEDS: SODIUM CHLORIDE 0.45% 1,000 ML IV SCH ×2 (09:17→13:07)
[2017-03-28] MEDS: amLODIPine 5 MG TABLET PEG SCH (09:17)
[2017-03-28] MEDS: VANCOMYCIN INJ 750 MG in SODIUM CHLORIDE 0.9% 150 ML IV SCH (16:46)
[2017-03-29] MEDS: LEVOFLOXACIN INJ 750 MG in PREMIX 1 EACH IV SCH ×2 (01:37→22:31)
[2017-03-29] MEDS: methylPREDNISolone SOD SUC 40 MG/1 ML VIAL IV SCH ×3 (01:37→17:03)
[2017-03-29] MEDS: ALBUTEROL/IPRATROPIUM 3 ML NEB RESP TX SCH ×6 (01:49→21:05)
[2017-03-29] MEDS: VANCOMYCIN INJ 750 MG in SODIUM CHLORIDE 0.9% 150 ML IV SCH ×2 (03:18→14:24)
[2017-03-29 06:27] LABS: Calcium 8.5 MG/DL (8.5-10.1); Osmolality,Calculated 286.4 MOS/KG (273-304); Potassium 4.2 MMOL/L (3.5-5.1)
[2017-03-29] MEDS: SODIUM CHLORIDE 0.45% 1,000 ML IV SCH ×3 (08:24→17:11)
[2017-03-29] MEDS: amLODIPine 5 MG TABLET PEG SCH (10:09)
[2017-03-29] MEDS: hydrALAZINE 20 MG/1 ML VIAL IV PRN (10:09)
[2017-03-29] MEDS: PANTOPRAZOLE 40 MG TABLET PO SCH ×2 (10:09→23:00)
[2017-03-29] MEDS ORDERED: SKIN HEALING OINT (AQUAPHOR) 50 GM TUBE TOP PRN (16:55)
[2017-03-29] MEDS: ACETAMINOPHEN 325 MG/10.15 ML UDCUP PO PRN ×2 (17:12→23:27)
[2017-03-29] MEDS: SODIUM CHLORIDE 0.9% 1,000 ML IV SCH (20:28)
[2017-03-29] MEDS ORDERED: ENOXAPARIN 40 MG/0.4 ML SYRINGE SUBCUT SCH (21:30)
[2017-03-29] MEDS: ASPIRIN 325 MG TABLET PEG SCH (21:39)
[2017-03-29 22:26] LABS: Basophils % 0.1 % (0.0-0.8); Hemoglobin 8.5 GM/DL (14.0-18.0); Immature Granulocytes % 0.5 %; Immature Granulocytes Absolute 0.08 #; Lymphocytes # 0.2 10*3/uL (1.4-4.0); Lymphocytes % 1.6 % (21.2-54.2); Mean Corpuscular HGB Conc 32.7 GM/DL (32-36); Mean Corpuscular Hemoglobin 27 PG (27-34); Monocytes # 0.4 10*3/uL (0.11-0.8); Monocytes % 2.6 % (1.7-12.7); NRBC # 0.04 10*3/uL; Neutrophils # 14.7 10*3/uL (1.4-7.4); Neutrophils % 95.2 % (38.7-73.9); Platelet Count 392 T/CUMM (130-400); Red Blood Count 3.21 MC/CUMM (3.8-5.5); Red Cell Distribution Width 16.5 % (9.3-17.3); White Blood Count 15.4 T/CUMM (4-12)
[2017-03-29 22:52] LABS: Anisocytosis 1+; Hypochromasia Slight; Lymphocytes 3 % (20-55); Platelet Estimate Normal; Segmented Neutrophils 96 % (50-85); Total Cells Counted 100
[2017-03-29 22:54] LABS: Alanine Aminotransferase 28 U/L (16-61); Albumin 2.4 G/DL (3.4-5.0); Alkaline Phosphatase 165 U/L (45-117); Aspartate Amino Transferase 16 U/L (0-37); Bilirubin,Total < 0.39 MG/DL (0.2-1.0); Blood Urea Nitrogen 31 MG/DL (7-18); Calcium 8.2 MG/DL (8.5-10.1); Glucose 181 MG/DL (74-106); Osmolality,Calculated 294.1 MOS/KG (273-304); Sodium 142 MMOL/L (136-145); Total Protein 5.7 G/DL (6.4-8.3)
[2017-03-29 23:02] LABS: INR 1.1; PT Patient Result 11.8 SECS; Partial Thromboplastin Time 28.9 SECS (0-40)
[2017-03-29 23:25] LABS: Apearance,Urine CLEAR (Clear); Bilirubin,Urine Negative (Negative); Blood, Urine Negative (Negative); Glucose,Urine (UA) 150 mg/dL (Negative); Ketones,Urine Negative (Negative); Mucus,Urine Occasional /LPF (Occasional); Nitrite,Urine Negative (Negative); Protein,Urine Negative; Urine Color Yellow (Yellow); Urine Specific Gravity 1.016 (1.001-1.035); Urine Urobilinogen < 2.0 EU/DL (0.2-1.0); WBC,Urine 1 /HPF (0-6)
[2017-03-30] MEDS: ALBUTEROL/IPRATROPIUM 3 ML NEB RESP TX SCH ×6 (02:09→22:01)
[2017-03-30] MEDS: methylPREDNISolone SOD SUC 40 MG/1 ML VIAL IV SCH ×3 (07:34→16:51)
[2017-03-30] MEDS: VANCOMYCIN INJ 750 MG in SODIUM CHLORIDE 0.9% 150 ML IV SCH (07:34)
[2017-03-30] MEDS: ceFAZolin 1,000 MG in SYRINGE 1 EACH IV SCH ×2 (10:06→16:51)
[2017-03-30] MEDS: amLODIPine 5 MG TABLET PEG SCH (10:06)
[2017-03-30] MEDS: ASPIRIN 325 MG TABLET PEG SCH (10:06)
[2017-03-30] MEDS: PANTOPRAZOLE 40 MG TABLET PO SCH ×2 (10:06→21:26)
[2017-03-30] MEDS: APIXABAN 5 MG TABLET PO SCH (21:26)
[2017-03-30] MEDS: SODIUM CHLORIDE 0.45% 1,000 ML IV SCH (21:28)
[2017-03-30] MEDS: SODIUM CHLORIDE 0.9% 1,000 ML IV SCH (21:29)
[2017-03-31] MEDS: ALBUTEROL/IPRATROPIUM 3 ML NEB RESP TX SCH ×6 (00:25→19:59)
[2017-03-31] MEDS: ceFAZolin 1,000 MG in SYRINGE 1 EACH IV SCH ×3 (00:32→17:06)
[2017-03-31] MEDS: methylPREDNISolone SOD SUC 40 MG/1 ML VIAL IV SCH ×3 (00:51→17:03)
[2017-03-31] MEDS: SODIUM CHLORIDE 0.45% 1,000 ML IV SCH (01:43)
[2017-03-31 03:03] LABS: Hematocrit 30.1 VOL% (42.0-52.0); Hemoglobin 9.6 GM/DL (14.0-18.0); Immature Granulocytes % 0.7 %; Immature Granulocytes Absolute 0.11 #; Lymphocytes # 0.2 10*3/uL (1.4-4.0); Lymphocytes % 1.4 % (21.2-54.2); Mean Corpuscular HGB Conc 31.9 GM/DL (32-36); Mean Corpuscular Hemoglobin 26 PG (27-34); Mean Corpuscular Volume 81.6 FL (87-102); Mean Platelet Volume 11.3 FL (9.6-12.0); Monocytes # 0.2 10*3/uL (0.11-0.8); Monocytes % 1.5 % (1.7-12.7); NRBC # 0.02 10*3/uL; Neutrophils # 14.8 10*3/uL (1.4-7.4); Neutrophils % 96.4 % (38.7-73.9); Platelet Count 449 T/CUMM (130-400); Red Blood Count 3.69 MC/CUMM (3.8-5.5); Red Cell Distribution Width 16.7 % (9.3-17.3); White Blood Count 15.3 T/CUMM (4-12)
[2017-03-31 03:15] LABS: Calcium 8.6 MG/DL (8.5-10.1); Osmolality,Calculated 300.1 MOS/KG (273-304); Potassium 4.3 MMOL/L (3.5-5.1)
[2017-03-31 04:06] LABS: Lymphocytes 1 % (20-55); Segmented Neutrophils 98 % (50-85); Total Cells Counted 100
[2017-03-31 04:07] LABS: Acanthocytes Few; Anisocytosis 1+; Platelet Estimate Normal
[2017-03-31] MEDS: PANTOPRAZOLE 40 MG TABLET PO SCH ×2 (10:27→21:55)
[2017-03-31] MEDS: APIXABAN 5 MG TABLET PO SCH ×2 (10:27→21:55)
[2017-03-31] MEDS: amLODIPine 5 MG TABLET PEG SCH (10:27)
[2017-03-31] MEDS: ASPIRIN 325 MG TABLET PEG SCH (10:27)
[2017-04-01] MEDS: ALBUTEROL/IPRATROPIUM 3 ML NEB RESP TX SCH ×7 (00:17→23:20)
[2017-04-01] MEDS: methylPREDNISolone SOD SUC 40 MG/1 ML VIAL IV SCH ×3 (01:05→16:06)
[2017-04-01] MEDS: ceFAZolin 1,000 MG in SYRINGE 1 EACH IV SCH ×3 (01:06→16:08)
[2017-04-01] MEDS: SODIUM CHLORIDE 0.45% 1,000 ML IV SCH (01:52)
[2017-04-01] MEDS: SODIUM CHLORIDE 0.9% 1,000 ML IV SCH (08:35)
[2017-04-01] MEDS: APIXABAN 5 MG TABLET PO SCH ×2 (10:18→21:02)
[2017-04-01] MEDS: amLODIPine 5 MG TABLET PEG SCH (10:19)
[2017-04-01] MEDS: PANTOPRAZOLE 40 MG TABLET PO SCH ×2 (10:19→21:02)
[2017-04-01] MEDS: ASPIRIN 325 MG TABLET PEG SCH (10:19)
[2017-04-02] MEDS: ALBUTEROL/IPRATROPIUM 3 ML NEB RESP TX SCH ×6 (02:06→23:31)
[2017-04-02] MEDS: ceFAZolin 1,000 MG in SYRINGE 1 EACH IV SCH ×3 (02:37→16:10)
[2017-04-02] MEDS: methylPREDNISolone SOD SUC 40 MG/1 ML VIAL IV SCH ×3 (02:42→16:10)
[2017-04-02] MEDS: SODIUM CHLORIDE 0.9% 1,000 ML IV SCH (02:45)
[2017-04-02 05:21] LABS: Basophils % 0.1 % (0.0-0.8); Hematocrit 30.6 VOL% (42.0-52.0); Hemoglobin 9.9 GM/DL (14.0-18.0); Immature Granulocytes % 0.7 %; Immature Granulocytes Absolute 0.11 #; Lymphocytes # 0.3 10*3/uL (1.4-4.0); Lymphocytes % 1.8 % (21.2-54.2); Mean Corpuscular HGB Conc 32.4 GM/DL (32-36); Mean Corpuscular Hemoglobin 26 PG (27-34); Monocytes # 0.5 10*3/uL (0.11-0.8); NRBC # 0.02 10*3/uL; Neutrophils # 15.5 10*3/uL (1.4-7.4); Neutrophils % 94.4 % (38.7-73.9); Platelet Count 455 T/CUMM (130-400); Red Blood Count 3.78 MC/CUMM (3.8-5.5); Red Cell Distribution Width 16.3 % (9.3-17.3); White Blood Count 16.4 T/CUMM (4-12)
[2017-04-02 05:58] LABS: Band Neutrophils 1 % (0-10); Lymphocytes 3 % (20-55); Segmented Neutrophils 95 % (50-85); Total Cells Counted 100
[2017-04-02 05:59] LABS: Platelet Estimate Increased
[2017-04-02 06:03] LABS: Calcium 8.8 MG/DL (8.5-10.1); Osmolality,Calculated 295.8 MOS/KG (273-304); Potassium 4.2 MMOL/L (3.5-5.1)
[2017-04-02] MEDS: amLODIPine 5 MG TABLET PEG SCH (10:13)
[2017-04-02] MEDS: ASPIRIN 325 MG TABLET PEG SCH (10:13)
[2017-04-02] MEDS: hydrALAZINE 20 MG/1 ML VIAL IV PRN (10:14)
[2017-04-02] MEDS: APIXABAN 5 MG TABLET PO SCH ×2 (10:15→22:05)
[2017-04-02] MEDS: PANTOPRAZOLE 40 MG TABLET PO SCH ×2 (10:17→22:05)
[2017-04-03] MEDS: methylPREDNISolone SOD SUC 40 MG/1 ML VIAL IV SCH ×3 (01:55→23:09)
[2017-04-03] MEDS: ceFAZolin 1,000 MG in SYRINGE 1 EACH IV SCH ×2 (01:55→10:20)
[2017-04-03] MEDS: ALBUTEROL/IPRATROPIUM 3 ML NEB RESP TX SCH ×6 (04:22→23:18)
[2017-04-03 07:03] LABS: Basophils % 0.1 % (0.0-0.8); Hematocrit 34.4 VOL% (42.0-52.0); Immature Granulocytes % 0.8 %; Immature Granulocytes Absolute 0.14 #; Lymphocytes # 0.2 10*3/uL (1.4-4.0); Lymphocytes % 1.3 % (21.2-54.2); Mean Corpuscular Hemoglobin 26 PG (27-34); Mean Corpuscular Volume 81.1 FL (87-102); Mean Platelet Volume 11.4 FL (9.6-12.0); Monocytes # 0.4 10*3/uL (0.11-0.8); Monocytes % 2.1 % (1.7-12.7); NRBC # 0.03 10*3/uL; Neutrophils # 17.6 10*3/uL (1.4-7.4); Neutrophils % 95.7 % (38.7-73.9); Platelet Count 438 T/CUMM (130-400); Red Blood Count 4.24 MC/CUMM (3.8-5.5); Red Cell Distribution Width 16.4 % (9.3-17.3); White Blood Count 18.4 T/CUMM (4-12)
[2017-04-03 07:24] LABS: Lymphocytes 2 % (20-55); Segmented Neutrophils 94 % (50-85); Total Cells Counted 100
[2017-04-03 07:25] LABS: Hypochromasia 1+; Microcytosis 1+; Ovalocytes Slight; Platelet Estimate Increased
[2017-04-03] MEDS: amLODIPine 5 MG TABLET PEG SCH (10:20)
[2017-04-03] MEDS: ASPIRIN 325 MG TABLET PEG SCH (10:20)
[2017-04-03] MEDS: APIXABAN 5 MG TABLET PO SCH ×2 (10:20→23:09)
[2017-04-03] MEDS: PANTOPRAZOLE 40 MG TABLET PO SCH ×2 (10:20→23:09)
[2017-04-03] MEDS: SODIUM CHLORIDE 0.9% 1,000 ML IV SCH (17:15)
[2017-04-03] MEDS: LEVOFLOXACIN INJ 500 MG in PREMIX 1 EACH IV SCH (17:15)
[2017-04-04] MEDS: ALBUTEROL/IPRATROPIUM 3 ML NEB RESP TX SCH ×6 (03:06→23:41)
[2017-04-04] MEDS: SODIUM CHLORIDE 0.9% 1,000 ML IV SCH (04:26)
[2017-04-04] MEDS: ASPIRIN 325 MG TABLET PEG SCH ×2 (09:38→11:28)
[2017-04-04] MEDS: amLODIPine 5 MG TABLET PEG SCH (09:38)
[2017-04-04] MEDS: PANTOPRAZOLE 40 MG TABLET PO SCH ×2 (09:38→21:07)
[2017-04-04] MEDS: APIXABAN 5 MG TABLET PO SCH ×2 (09:38→11:25)
[2017-04-04] MEDS: LEVOFLOXACIN INJ 500 MG in PREMIX 1 EACH IV SCH (09:40)
[2017-04-04 12:23] LABS: Basophils % 0.1 % (0.0-0.8); Hematocrit 29.2 VOL% (42.0-52.0); Hemoglobin 9.1 GM/DL (14.0-18.0); Immature Granulocytes % 1.1 %; Immature Granulocytes Absolute 0.21 #; Lymphocytes # 0.2 10*3/uL (1.4-4.0); Mean Corpuscular HGB Conc 31.2 GM/DL (32-36); Mean Corpuscular Hemoglobin 26 PG (27-34); Mean Corpuscular Volume 83.9 FL (87-102); Mean Platelet Volume 11.5 FL (9.6-12.0); Monocytes # 0.4 10*3/uL (0.11-0.8); Monocytes % 2.3 % (1.7-12.7); NRBC # 0.02 10*3/uL; Neutrophils # 18.7 10*3/uL (1.4-7.4); Neutrophils % 95.5 % (38.7-73.9); Platelet Count 399 T/CUMM (130-400); Red Blood Count 3.48 MC/CUMM (3.8-5.5); Red Cell Distribution Width 16.9 % (9.3-17.3); White Blood Count 19.5 T/CUMM (4-12)
[2017-04-04 12:54] LABS: Hypersegmented Neutrophil 1+; Lymphocytes 2 % (20-55); Platelet Estimate Adequate; Segmented Neutrophils 97 % (50-85); Total Cells Counted 100
[2017-04-04] MEDS: methylPREDNISolone SOD SUC 40 MG/1 ML VIAL IV SCH (21:07)
[2017-04-05] MEDS: ALBUTEROL/IPRATROPIUM 3 ML NEB RESP TX SCH ×3 (04:11→11:47)
[2017-04-05 05:26] LABS: Basophils % 0.1 % (0.0-0.8); Hemoglobin 8.5 GM/DL (14.0-18.0); Immature Granulocytes % 0.8 %; Immature Granulocytes Absolute 0.17 #; Lymphocytes # 0.3 10*3/uL (1.4-4.0); Lymphocytes % 1.5 % (21.2-54.2); Mean Corpuscular HGB Conc 31.5 GM/DL (32-36); Mean Corpuscular Hemoglobin 26 PG (27-34); Mean Corpuscular Volume 82.6 FL (87-102); Monocytes # 0.3 10*3/uL (0.11-0.8); Monocytes % 1.4 % (1.7-12.7); Neutrophils # 20.5 10*3/uL (1.4-7.4); Neutrophils % 96.2 % (38.7-73.9); Platelet Count 384 T/CUMM (130-400); Red Blood Count 3.27 MC/CUMM (3.8-5.5); White Blood Count 21.3 T/CUMM (4-12)
[2017-04-05 05:51] LABS: Calcium 8.8 MG/DL (8.5-10.1); Osmolality,Calculated 301.6 MOS/KG (273-304); Potassium 4.6 MMOL/L (3.5-5.1)
[2017-04-05 05:55] LABS: Giant Platelets Few; Hypochromasia 1+; Lymphocytes 2 % (20-55); Microcytosis Slight; Ovalocytes Slight; Platelet Estimate Adequate; Segmented Neutrophils 98 % (50-85); Total Cells Counted 100
[2017-04-05] MEDS: amLODIPine 5 MG TABLET PEG SCH (09:27)
[2017-04-05] MEDS: PANTOPRAZOLE 40 MG TABLET PO SCH (09:27)
[2017-04-05] MEDS: LEVOFLOXACIN INJ 500 MG in PREMIX 1 EACH IV SCH (09:27)
[2017-04-05] MEDS ORDERED: IRON SUCROSE 200 MG in SODIUM CHLORIDE 0.9% 100 ML IV ONE (10:30)
[2017-04-05 12:37] VITALS: BP 113/58
== END 2017-04-05 14:09 | DRG 871 ==
LOC: EDBD → EDUNIT# → N.ED 20:14 → N.EDINP 23:08 → SUATTDRO 23:08 → N.EDINP 23:47 → N.5E 23:54 → N.CC 03-24 01:30 → N.2E 03-25 11:01
PROVIDERS: ATTEND Internal Medicine Geriatric Medicine

== ENCOUNTER 2017-04-07 17:58 | Inpatient (IN) ==
[2017-04-07] MEDS ORDERED: PANTOPRAZOLE 40 MG VIAL IV STA (18:30)
[2017-04-07] MEDS ORDERED: ONDANSETRON 4 MG/2 ML VIAL IV STA (18:30)
[2017-04-07] MEDS ORDERED: SODIUM CHLORIDE 0.9% 500 ML IV STA (18:30)
[2017-04-07] MEDS ORDERED: ONDANSETRON 4 MG/2 ML VIAL ONE (19:09)
[2017-04-07] MEDS ORDERED: PANTOPRAZOLE 40 MG VIAL IV ONE (19:09)
[2017-04-07 19:20] LABS: Basophils % 0.1 % (0.0-0.8); Eosinophils # 0.1 10*3/uL (0.0-0.87); Eosinophils % 0.5 % (0.00-10.9); Hematocrit 23.1 VOL% (42.0-52.0); Hemoglobin 7.2 GM/DL (14.0-18.0); Immature Granulocytes % 1.5 %; Immature Granulocytes Absolute 0.25 #; Lymphocytes # 0.6 10*3/uL (1.4-4.0); Lymphocytes % 3.3 % (21.2-54.2); Mean Corpuscular HGB Conc 31.2 GM/DL (32-36); Mean Corpuscular Hemoglobin 26 PG (27-34); Mean Corpuscular Volume 84.3 FL (87-102); Mean Platelet Volume 11.8 FL (9.6-12.0); Monocytes # 0.7 10*3/uL (0.11-0.8); NRBC # 0.13 10*3/uL; Neutrophils # 15.5 10*3/uL (1.4-7.4); Neutrophils % 90.6 % (38.7-73.9); Platelet Count 283 T/CUMM (130-400); Red Blood Count 2.74 MC/CUMM (3.8-5.5); Red Cell Distribution Width 17.6 % (9.3-17.3); White Blood Count 17.1 T/CUMM (4-12)
[2017-04-07 19:35] LABS: Ammonia 18 UMOL/L (11-32); PT Patient Result 10.5 SECS
[2017-04-07 19:40] LABS: Alanine Aminotransferase 20 U/L (16-61); Albumin 2.6 G/DL (3.4-5.0); Alkaline Phosphatase 113 U/L (45-117); Aspartate Amino Transferase 27 U/L (0-37); Bilirubin,Total < 0.39 MG/DL (0.2-1.0); Blood Urea Nitrogen 27 MG/DL (7-18); Glucose 149 MG/DL (74-106); Lactic Acid 2.3 MMOL/L (0.4-2.0); Magnesium 2.1 MG/DL (1.8-2.4); Osmolality,Calculated 290.1 MOS/KG (273-304); Potassium 3.5 MMOL/L (3.5-5.1); Sodium 142 MMOL/L (136-145); Total Protein 5.8 G/DL (6.4-8.3)
[2017-04-07 19:42] LABS: Troponin I Only 0.134 NG/ML (0.00-0.045)
[2017-04-07] MEDS ORDERED: SODIUM CHLORIDE 0.9% 1,900 ML IV ONE (19:54)
[2017-04-07] MEDS ORDERED: ONDANSETRON 4 MG/2 ML VIAL IV PRN (20:31)
[2017-04-07 20:46] LABS: Band Neutrophils 3 % (0-10); Lymphocytes 4 % (20-55); Platelet Estimate Normal; Segmented Neutrophils 89 % (50-85); Total Cells Counted 100
[2017-04-07 20:46] LABS: PT Patient Result 10.4 SECS; Partial Thromboplastin Time 26.2 SECS (0-40)
[2017-04-07] MEDS ORDERED: SODIUM CHLORIDE 0.9% 100 ML IV ONE (20:56)
[2017-04-07] MEDS ORDERED: PIPERACILLIN/TAZOBACTAM 3,375 MG VIAL IV ONE (20:56)
[2017-04-07] MEDS ORDERED: SKIN HEALING OINT (AQUAPHOR) 50 GM TUBE TOP PRN (21:40)
[2017-04-07] MEDS ORDERED: ZINC OXIDE PASTE 113 GM TUBE TOP PRN (21:40)
[2017-04-07] MEDS ORDERED: SODIUM CHLORIDE 0.9% 1,000 ML IV PRN (21:44)
[2017-04-07 22:21] LABS: Apearance,Urine CLEAR (Clear); Bilirubin,Urine Negative (Negative); Blood, Urine Negative (Negative); Glucose,Urine (UA) Negative (Negative); Ketones,Urine Negative (Negative); Nitrite,Urine Negative (Negative); Protein,Urine Negative; RBC,Urine <1 /HPF (0-4); Urine Color Yellow (Yellow); Urine Specific Gravity 1.012 (1.001-1.035); Urine Urobilinogen < 2.0 EU/DL (0.2-1.0); WBC,Urine <1 /HPF (0-6)
[2017-04-07] MEDS ORDERED: PIPERACILLIN/TAZOBACTAM 3,375 MG in SODIUM CHLORIDE 0.9% 100 ML IV STA (23:19)
[2017-04-08] MEDS: VANCOMYCIN INJ 1,000 MG in SODIUM CHLORIDE 0.9% 250 ML IV SCH ×3 (00:24→23:43)
[2017-04-08 00:47] LABS: Lactic Acid 2.1 MMOL/L (0.4-2.0)
[2017-04-08] MEDS: ALBUTEROL/IPRATROPIUM 3 ML NEB RESP TX SCH ×4 (02:40→21:28)
[2017-04-08] MEDS: SODIUM CHLORIDE 0.9% 1,000 ML IV SCH ×2 (06:44→06:45)
[2017-04-08 07:53] LABS: Basophils % 0.1 % (0.0-0.8); Mean Platelet Volume 11.9 FL (9.6-12.0); Red Cell Distribution Width 15.9 % (9.3-17.3)
[2017-04-08] MEDS ORDERED: FUROSEMIDE 40 MG TABLET PEG SCH (08:00)
[2017-04-08 08:06] LABS: Eosinophils # 0.1 10*3/uL (0.0-0.87); Hematocrit 27.2 VOL% (42.0-52.0); Immature Granulocytes % 0.9 %; Immature Granulocytes Absolute 0.12 #; Lymphocytes # 0.5 10*3/uL (1.4-4.0); Lymphocytes % 3.7 % (21.2-54.2); Mean Corpuscular HGB Conc 33.1 GM/DL (32-36); Mean Corpuscular Hemoglobin 27 PG (27-34); Mean Corpuscular Volume 82.4 FL (87-102); Monocytes # 0.6 10*3/uL (0.11-0.8); Monocytes % 4.2 % (1.7-12.7); NRBC # 0.17 10*3/uL; Neutrophils # 12.2 10*3/uL (1.4-7.4); Neutrophils % 90.1 % (38.7-73.9); Platelet Count 235 T/CUMM (130-400); White Blood Count 13.6 T/CUMM (4-12)
[2017-04-08] MEDS: PIPERACILLIN/TAZOBACTAM 3,375 MG in SODIUM CHLORIDE 0.9% 100 ML IV SCH ×2 (08:23→16:12)
[2017-04-08 08:28] LABS: Calcium 7.7 MG/DL (8.5-10.1); Osmolality,Calculated 292.7 MOS/KG (273-304); Potassium 3.9 MMOL/L (3.5-5.1)
[2017-04-08 08:29] LABS: Lymphocytes 4 % (20-55); Nucleated Red Blood Cells 3 (0-5); Segmented Neutrophils 93 % (50-85); Total Cells Counted 100
[2017-04-08 08:30] LABS: Hypochromasia 1+; Microcytosis Slight; Ovalocytes Slight
[2017-04-08 08:31] LABS: Albumin 2.3 G/DL (3.4-5.0); Bilirubin,Total 0.4 MG/DL (0.2-1.0); Calcium 7.8 MG/DL (8.5-10.1); Osmolality,Calculated 293.6 MOS/KG (273-304); Potassium 3.9 MMOL/L (3.5-5.1)
[2017-04-08] MEDS ORDERED: PANTOPRAZOLE 40 MG TABLET PO SCH (09:00)
[2017-04-08] MEDS: CLOTRIMAZOLE 1% CREAM 15 GM TUBE TOP SCH ×3 (09:00→21:23)
[2017-04-08] MEDS: DEXTROSE 5% NACL 0.45% 1,000 ML IV SCH (09:38)
[2017-04-08] MEDS: predniSONE 5 MG TABLET PEG SCH ×2 (09:39→10:27)
[2017-04-08] MEDS: amLODIPine 10 MG TABLET PEG SCH ×2 (09:39→10:28)
[2017-04-08] MEDS: PANTOPRAZOLE 40 MG VIAL IV SCH ×2 (10:10→21:20)
[2017-04-08] MEDS: FERROUS SULFATE 325 MG TABLET PO SCH ×2 (14:58→21:19)
[2017-04-08] MEDS: SERTRALINE 25 MG TABLET PEG SCH (21:19)
[2017-04-09] MEDS: PIPERACILLIN/TAZOBACTAM 3,375 MG in SODIUM CHLORIDE 0.9% 100 ML IV SCH ×3 (01:23→16:47)
[2017-04-09] MEDS: ALBUTEROL/IPRATROPIUM 3 ML NEB RESP TX SCH ×4 (01:52→21:05)
[2017-04-09 02:35] LABS: Basophils % 0.1 % (0.0-0.8); Eosinophils # 0.1 10*3/uL (0.0-0.87); Eosinophils % 0.9 % (0.00-10.9); Hemoglobin 8.6 GM/DL (14.0-18.0); Immature Granulocytes % 0.9 %; Immature Granulocytes Absolute 0.12 #; Lymphocytes # 0.6 10*3/uL (1.4-4.0); Mean Corpuscular HGB Conc 31.9 GM/DL (32-36); Mean Corpuscular Hemoglobin 27 PG (27-34); Mean Corpuscular Volume 84.6 FL (87-102); Mean Platelet Volume 12.6 FL (9.6-12.0); Monocytes # 0.6 10*3/uL (0.11-0.8); Monocytes % 4.3 % (1.7-12.7); NRBC # 0.15 10*3/uL; Neutrophils # 12.5 10*3/uL (1.4-7.4); Neutrophils % 89.8 % (38.7-73.9); Platelet Count 222 T/CUMM (130-400); Red Blood Count 3.19 MC/CUMM (3.8-5.5); Red Cell Distribution Width 16.2 % (9.3-17.3); White Blood Count 13.9 T/CUMM (4-12)
[2017-04-09 05:17] LABS: Band Neutrophils 2 % (0-10); Eosinophils 1 % (0-10); Lymphocytes 6 % (20-55); Nucleated Red Blood Cells 1 (0-5); Segmented Neutrophils 89 % (50-85); Total Cells Counted 100
[2017-04-09 05:19] LABS: Hypochromasia Slight; Platelet Estimate Normal
[2017-04-09 05:20] LABS: Polychromasia Few
[2017-04-09 05:21] LABS: Anisocytosis Slight; Microcytosis Slight
[2017-04-09] MEDS: DEXTROSE 5% NACL 0.45% 1,000 ML IV SCH (05:39)
[2017-04-09] MEDS: predniSONE 5 MG TABLET PEG SCH (08:12)
[2017-04-09] MEDS: FERROUS SULFATE 325 MG TABLET PO SCH ×3 (08:12→22:01)
[2017-04-09] MEDS: amLODIPine 10 MG TABLET PEG SCH (08:12)
[2017-04-09] MEDS: COLLAGENASE OINT 30 GM TUBE TOP SCH (08:13)
[2017-04-09] MEDS: PANTOPRAZOLE 40 MG VIAL IV SCH ×2 (08:14→21:53)
[2017-04-09] MEDS: CLOTRIMAZOLE 1% CREAM 15 GM TUBE TOP SCH ×2 (08:17→21:57)
[2017-04-09] MEDS: VANCOMYCIN INJ 1,000 MG in SODIUM CHLORIDE 0.9% 250 ML IV SCH ×2 (13:28→21:58)
[2017-04-09] MEDS: MONTELUKAST 10 MG TABLET PER TUBE SCH (14:46)
[2017-04-09] MEDS: SERTRALINE 25 MG TABLET PEG SCH (22:01)
[2017-04-10] MEDS: ALBUTEROL/IPRATROPIUM 3 ML NEB RESP TX SCH ×4 (00:11→19:38)
[2017-04-10] MEDS: PIPERACILLIN/TAZOBACTAM 3,375 MG in SODIUM CHLORIDE 0.9% 100 ML IV SCH ×3 (02:00→18:31)
[2017-04-10 04:47] LABS: ABG HCO3 25.4 MMOL/L (20-26); ABG Oxygen Saturation 98.9 % (95-100); ABG PCO2 33.7 MM HG (35-48); ABG PH 7.469 (7.35-7.45); ABG PO2 98.4 MM HG (80-95); ABG TCO2 22.7 MMOL/L (23-27); Allen Test Positive
[2017-04-10 06:21] LABS: Basophils % 0.1 % (0.0-0.8); Eosinophils # 0.1 10*3/uL (0.0-0.87); Eosinophils % 0.7 % (0.00-10.9); Hematocrit 26.8 VOL% (42.0-52.0); Hemoglobin 8.7 GM/DL (14.0-18.0); Immature Granulocytes Absolute 0.13 #; Lymphocytes # 0.5 10*3/uL (1.4-4.0); Lymphocytes % 3.9 % (21.2-54.2); Mean Corpuscular HGB Conc 32.5 GM/DL (32-36); Mean Corpuscular Hemoglobin 27 PG (27-34); Mean Corpuscular Volume 83.2 FL (87-102); Mean Platelet Volume 12.1 FL (9.6-12.0); Monocytes # 0.6 10*3/uL (0.11-0.8); Monocytes % 4.5 % (1.7-12.7); NRBC # 0.16 10*3/uL; Neutrophils # 11.6 10*3/uL (1.4-7.4); Neutrophils % 89.8 % (38.7-73.9); Platelet Count 213 T/CUMM (130-400); Red Blood Count 3.22 MC/CUMM (3.8-5.5); Red Cell Distribution Width 16.3 % (9.3-17.3); White Blood Count 12.9 T/CUMM (4-12)
[2017-04-10 06:43] LABS: Lymphocytes 3 % (20-55); Nucleated Red Blood Cells 5 (0-5); Segmented Neutrophils 94 % (50-85); Total Cells Counted 100
[2017-04-10] MEDS: VANCOMYCIN INJ 1,000 MG in SODIUM CHLORIDE 0.9% 250 ML IV SCH ×3 (06:43→22:41)
[2017-04-10 06:44] LABS: Giant Platelets Few; Hypochromasia 1+; Microcytosis Slight; Platelet Estimate Adequate
[2017-04-10 06:48] LABS: Albumin 2.2 G/DL (3.4-5.0); Bilirubin,Total 0.9 MG/DL (0.2-1.0); Calcium 7.7 MG/DL (8.5-10.1); Osmolality,Calculated 276.5 MOS/KG (273-304); Potassium 3.8 MMOL/L (3.5-5.1); Total Protein 5.3 G/DL (6.4-8.3)
[2017-04-10] MEDS ORDERED: LIDOCAINE 1% 5 ML VIAL ONE (07:52)
[2017-04-10] MEDS ORDERED: PROPOFOL 200 MG/20 ML VIAL IV ONE (07:52)
[2017-04-10] MEDS: PANTOPRAZOLE 40 MG VIAL IV SCH ×2 (11:48→22:08)
[2017-04-10] MEDS: FERROUS SULFATE 325 MG TABLET PO SCH ×3 (11:48→22:08)
[2017-04-10] MEDS: CLOTRIMAZOLE 1% CREAM 15 GM TUBE TOP SCH ×2 (11:48→22:08)
[2017-04-10] MEDS: predniSONE 5 MG TABLET PEG SCH (11:56)
[2017-04-10] MEDS: amLODIPine 10 MG TABLET PEG SCH (11:56)
[2017-04-10] MEDS: MONTELUKAST 10 MG TABLET PER TUBE SCH (11:56)
[2017-04-10] MEDS: SERTRALINE 25 MG TABLET PEG SCH (22:08)
[2017-04-11] MEDS: DEXTROSE 5% NACL 0.45% 1,000 ML IV SCH (00:50)
[2017-04-11] MEDS: PIPERACILLIN/TAZOBACTAM 3,375 MG in SODIUM CHLORIDE 0.9% 100 ML IV SCH ×3 (00:55→17:24)
[2017-04-11] MEDS: ALBUTEROL/IPRATROPIUM 3 ML NEB RESP TX SCH ×4 (01:05→20:16)
[2017-04-11] MEDS ORDERED: ACETAMINOPHEN 325 MG TABLET PEG PRN (05:01)
[2017-04-11 05:30] LABS: Basophils % 0.1 % (0.0-0.8); Eosinophils # 0.1 10*3/uL (0.0-0.87); Eosinophils % 0.6 % (0.00-10.9); Hematocrit 25.7 VOL% (42.0-52.0); Hemoglobin 8.5 GM/DL (14.0-18.0); Immature Granulocytes % 0.9 %; Lymphocytes # 0.5 10*3/uL (1.4-4.0); Lymphocytes % 4.1 % (21.2-54.2); Mean Corpuscular HGB Conc 33.1 GM/DL (32-36); Mean Corpuscular Hemoglobin 27 PG (27-34); Mean Corpuscular Volume 81.1 FL (87-102); Mean Platelet Volume 11.7 FL (9.6-12.0); Monocytes # 0.5 10*3/uL (0.11-0.8); Monocytes % 4.6 % (1.7-12.7); NRBC # 0.08 10*3/uL; Neutrophils # 10.2 10*3/uL (1.4-7.4); Neutrophils % 89.7 % (38.7-73.9); Platelet Count 202 T/CUMM (130-400); Red Blood Count 3.17 MC/CUMM (3.8-5.5); Red Cell Distribution Width 15.9 % (9.3-17.3); White Blood Count 11.4 T/CUMM (4-12)
[2017-04-11 06:00] LABS: Band Neutrophils 3 % (0-10); Eosinophils 1 % (0-10); Hypochromasia 1+; Lymphocytes 4 % (20-55); Microcytosis Slight; Polychromasia Slight; Segmented Neutrophils 90 % (50-85); Total Cells Counted 100
[2017-04-11 06:01] LABS: Ovalocytes Slight
[2017-04-11] MEDS: VANCOMYCIN INJ 1,000 MG in SODIUM CHLORIDE 0.9% 250 ML IV SCH ×3 (06:21→22:48)
[2017-04-11] MEDS ORDERED: GLUCAGON 1 MG VIAL IM PRN (08:18)
[2017-04-11] MEDS ORDERED: DEXTROSE 50% 25 GM/50 ML VIAL IV PRN (08:18)
[2017-04-11 08:37] LABS: % Iron Saturation 11.8 % (18-50)
[2017-04-11] MEDS ORDERED: IRON DEXTRAN 50 MG in SYRINGE 1 EACH IV ONE (09:00)
[2017-04-11] MEDS: FERROUS SULFATE 325 MG TABLET PO SCH ×3 (09:32→22:47)
[2017-04-11] MEDS: MONTELUKAST 10 MG TABLET PER TUBE SCH (09:32)
[2017-04-11] MEDS: amLODIPine 10 MG TABLET PEG SCH (09:32)
[2017-04-11] MEDS: predniSONE 5 MG TABLET PEG SCH (09:32)
[2017-04-11] MEDS: PANTOPRAZOLE 40 MG VIAL IV SCH ×2 (09:37→22:48)
[2017-04-11] MEDS: COLLAGENASE OINT 30 GM TUBE TOP SCH (09:42)
[2017-04-11] MEDS ORDERED: IRON DEXTRAN IV ONE (10:00)
[2017-04-11] MEDS ORDERED: SODIUM CHLORIDE 0.9% IV ONE (10:00)
[2017-04-11] MEDS: CLOTRIMAZOLE 1% CREAM 15 GM TUBE TOP SCH ×2 (14:25→22:48)
[2017-04-11] MEDS: SERTRALINE 25 MG TABLET PEG SCH (22:48)
[2017-04-12] MEDS: ALBUTEROL/IPRATROPIUM 3 ML NEB RESP TX SCH ×4 (01:19→20:05)
[2017-04-12] MEDS: PIPERACILLIN/TAZOBACTAM 3,375 MG in SODIUM CHLORIDE 0.9% 100 ML IV SCH ×3 (02:35→18:01)
[2017-04-12 04:04] LABS: Basophils % 0.1 % (0.0-0.8); Eosinophils # 0.1 10*3/uL (0.0-0.87); Eosinophils % 1.1 % (0.00-10.9); Hematocrit 28.9 VOL% (42.0-52.0); Hemoglobin 9.4 GM/DL (14.0-18.0); Immature Granulocytes % 0.8 %; Immature Granulocytes Absolute 0.09 #; Lymphocytes # 0.5 10*3/uL (1.4-4.0); Lymphocytes % 4.1 % (21.2-54.2); Mean Corpuscular HGB Conc 32.5 GM/DL (32-36); Mean Corpuscular Hemoglobin 27 PG (27-34); Mean Corpuscular Volume 83.3 FL (87-102); Mean Platelet Volume 12.3 FL (9.6-12.0); Monocytes # 0.5 10*3/uL (0.11-0.8); Monocytes % 4.3 % (1.7-12.7); NRBC # 0.07 10*3/uL; Neutrophils # 9.7 10*3/uL (1.4-7.4); Neutrophils % 89.6 % (38.7-73.9); Platelet Count 214 T/CUMM (130-400); Red Blood Count 3.47 MC/CUMM (3.8-5.5); Red Cell Distribution Width 15.9 % (9.3-17.3); White Blood Count 10.9 T/CUMM (4-12)
[2017-04-12 04:52] LABS: Albumin 2.3 G/DL (3.4-5.0); Calcium 8.2 MG/DL (8.5-10.1); Potassium 2.9 MMOL/L (3.5-5.1); Total Protein 6.1 G/DL (6.4-8.3)
[2017-04-12 05:02] LABS: Magnesium 1.9 MG/DL (1.8-2.4); Osmolality,Calculated 274.8 MOS/KG (273-304); Potassium 2.9 MMOL/L (3.5-5.1)
[2017-04-12 05:25] LABS: Eosinophils 2 % (0-10); Hypochromasia 1+; Lymphocytes 3 % (20-55); Myelocytes 1 %; Nucleated Red Blood Cells 2 (0-5); Segmented Neutrophils 89 % (50-85); Total Cells Counted 100
[2017-04-12 05:26] LABS: Microcytosis 1+; Platelet Estimate Normal; Polychromasia Slight
[2017-04-12] MEDS: VANCOMYCIN INJ 1,000 MG in SODIUM CHLORIDE 0.9% 250 ML IV SCH ×3 (06:50→22:45)
[2017-04-12] MEDS: predniSONE 5 MG TABLET PEG SCH (10:02)
[2017-04-12] MEDS: amLODIPine 10 MG TABLET PEG SCH (10:02)
[2017-04-12] MEDS: MONTELUKAST 10 MG TABLET PER TUBE SCH (10:03)
[2017-04-12] MEDS: PANTOPRAZOLE 40 MG VIAL IV SCH ×2 (10:03→22:02)
[2017-04-12] MEDS: FERROUS SULFATE 325 MG TABLET PO SCH ×3 (10:03→22:01)
[2017-04-12] MEDS: CLOTRIMAZOLE 1% CREAM 15 GM TUBE TOP SCH ×2 (10:03→22:03)
[2017-04-12] MEDS: SERTRALINE 25 MG TABLET PEG SCH (22:01)
[2017-04-13] MEDS: PIPERACILLIN/TAZOBACTAM 3,375 MG in SODIUM CHLORIDE 0.9% 100 ML IV SCH ×3 (00:15→19:47)
[2017-04-13] MEDS: ALBUTEROL/IPRATROPIUM 3 ML NEB RESP TX SCH ×4 (00:23→20:44)
[2017-04-13] MEDS: VANCOMYCIN INJ 1,000 MG in SODIUM CHLORIDE 0.9% 250 ML IV SCH (06:52)
[2017-04-13] MEDS: MONTELUKAST 10 MG TABLET PER TUBE SCH (10:01)
[2017-04-13] MEDS: FERROUS SULFATE 325 MG TABLET PO SCH ×3 (10:01→21:23)
[2017-04-13] MEDS: amLODIPine 10 MG TABLET PEG SCH (10:01)
[2017-04-13] MEDS: PANTOPRAZOLE 40 MG VIAL IV SCH ×2 (10:02→21:30)
[2017-04-13] MEDS: predniSONE 5 MG TABLET PEG SCH (10:02)
[2017-04-13] MEDS: CLOTRIMAZOLE 1% CREAM 15 GM TUBE TOP SCH ×2 (10:02→21:30)
[2017-04-13] MEDS: COLLAGENASE OINT 30 GM TUBE TOP SCH (10:02)
[2017-04-13] MEDS ORDERED: FUROSEMIDE 20 MG/2 ML VIAL IV ONE (18:11)
[2017-04-13] MEDS: DEXTROSE 5% NACL 0.45% 1,000 ML IV SCH ×3 (20:18→20:21)
[2017-04-13] MEDS: POTASSIUM CHLORIDE 20 MEQ/15 ML UDCUP PO SCH (21:24)
[2017-04-13] MEDS: SERTRALINE 25 MG TABLET PEG SCH (21:24)
[2017-04-13] MEDS: hydrALAZINE 25 MG TABLET PO SCH (21:30)
[2017-04-14] MEDS: VANCOMYCIN INJ 1,000 MG in SODIUM CHLORIDE 0.9% 250 ML IV SCH ×3 (00:09→23:20)
[2017-04-14] MEDS: ALBUTEROL/IPRATROPIUM 3 ML NEB RESP TX SCH ×4 (00:48→19:38)
[2017-04-14] MEDS: PIPERACILLIN/TAZOBACTAM 3,375 MG in SODIUM CHLORIDE 0.9% 100 ML IV SCH ×3 (02:12→16:23)
[2017-04-14 06:23] LABS: Basophils % 0.2 % (0.0-0.8); Eosinophils # 0.2 10*3/uL (0.0-0.87); Eosinophils % 1.7 % (0.00-10.9); Hematocrit 25.8 VOL% (42.0-52.0); Hemoglobin 8.5 GM/DL (14.0-18.0); Immature Granulocytes % 2.9 %; Immature Granulocytes Absolute 0.29 #; Lymphocytes # 0.5 10*3/uL (1.4-4.0); Lymphocytes % 4.6 % (21.2-54.2); Mean Corpuscular HGB Conc 32.9 GM/DL (32-36); Mean Corpuscular Hemoglobin 27 PG (27-34); Mean Corpuscular Volume 82.4 FL (87-102); Mean Platelet Volume 11.6 FL (9.6-12.0); Monocytes # 0.4 10*3/uL (0.11-0.8); Monocytes % 4.1 % (1.7-12.7); NRBC # 0.18 10*3/uL; Neutrophils # 8.6 10*3/uL (1.4-7.4); Neutrophils % 86.5 % (38.7-73.9); Platelet Count 207 T/CUMM (130-400); Red Blood Count 3.13 MC/CUMM (3.8-5.5); Red Cell Distribution Width 17.2 % (9.3-17.3)
[2017-04-14 06:54] LABS: Osmolality,Calculated 278.5 MOS/KG (273-304); Potassium 3.6 MMOL/L (3.5-5.1)
[2017-04-14 06:55] LABS: Calcium 7.8 MG/DL (8.5-10.1); Magnesium 1.8 MG/DL (1.8-2.4); Osmolality,Calculated 282.3 MOS/KG (273-304); Potassium 3.7 MMOL/L (3.5-5.1)
[2017-04-14] MEDS: DEXTROSE 5% NACL 0.45% 1,000 ML IV SCH (07:35)
[2017-04-14 07:41] LABS: Eosinophils 2 % (0-10); Hypochromasia 2+; Lymphocytes 4 % (20-55); Macrocytosis 1+; Nucleated Red Blood Cells 1 (0-5); Platelet Estimate Adequate; Polychromasia Slight; Segmented Neutrophils 94 % (50-85); Target Cells Slight; Total Cells Counted 100
[2017-04-14] MEDS: CLOTRIMAZOLE 1% CREAM 15 GM TUBE TOP SCH ×2 (09:07→21:55)
[2017-04-14] MEDS: FERROUS SULFATE 325 MG TABLET PO SCH ×3 (09:07→21:55)
[2017-04-14] MEDS: MONTELUKAST 10 MG TABLET PER TUBE SCH (09:07)
[2017-04-14] MEDS: PANTOPRAZOLE 40 MG VIAL IV SCH ×2 (09:07→21:55)
[2017-04-14] MEDS: POTASSIUM CHLORIDE 20 MEQ/15 ML UDCUP PO SCH ×2 (09:07→21:55)
[2017-04-14] MEDS: predniSONE 5 MG TABLET PEG SCH (09:07)
[2017-04-14] MEDS: hydrALAZINE 25 MG TABLET PO SCH ×2 (09:07→21:55)
[2017-04-14] MEDS: amLODIPine 10 MG TABLET PEG SCH (09:07)
[2017-04-14] MEDS: SERTRALINE 25 MG TABLET PEG SCH (22:12)
[2017-04-15] MEDS: ALBUTEROL/IPRATROPIUM 3 ML NEB RESP TX SCH ×4 (01:54→20:01)
[2017-04-15] MEDS: PIPERACILLIN/TAZOBACTAM 3,375 MG in SODIUM CHLORIDE 0.9% 100 ML IV SCH ×3 (02:52→16:08)
[2017-04-15 06:18] LABS: Basophils % 0.2 % (0.0-0.8); Eosinophils # 0.1 10*3/uL (0.0-0.87); Eosinophils % 1.2 % (0.00-10.9); Hematocrit 27.5 VOL% (42.0-52.0); Immature Granulocytes % 1.5 %; Immature Granulocytes Absolute 0.14 #; Lymphocytes # 0.3 10*3/uL (1.4-4.0); Lymphocytes % 3.5 % (21.2-54.2); Mean Corpuscular HGB Conc 32.7 GM/DL (32-36); Mean Corpuscular Hemoglobin 28 PG (27-34); Mean Corpuscular Volume 84.6 FL (87-102); Mean Platelet Volume 11.2 FL (9.6-12.0); Monocytes # 0.3 10*3/uL (0.11-0.8); Monocytes % 3.3 % (1.7-12.7); Neutrophils # 8.7 10*3/uL (1.4-7.4); Neutrophils % 90.3 % (38.7-73.9); Platelet Count 219 T/CUMM (130-400); Red Blood Count 3.25 MC/CUMM (3.8-5.5); Red Cell Distribution Width 18.5 % (9.3-17.3); White Blood Count 9.6 T/CUMM (4-12)
[2017-04-15 07:02] LABS: Anisocytosis 1+; Band Neutrophils 2 % (0-10); Eosinophils 2 % (0-10); Lymphocytes 5 % (20-55); Metamyelocytes 1 %; Myelocytes 1 %; Segmented Neutrophils 89 % (50-85); Total Cells Counted 100
[2017-04-15 07:03] LABS: Acanthocytes Few; Hypochromasia 1+; Ovalocytes Few; Platelet Estimate Normal
[2017-04-15] MEDS: DEXTROSE 5% NACL 0.45% 1,000 ML IV SCH (09:07)
[2017-04-15] MEDS: FERROUS SULFATE 325 MG TABLET PO SCH ×3 (09:08→22:30)
[2017-04-15] MEDS: PANTOPRAZOLE 40 MG VIAL IV SCH ×2 (09:08→22:30)
[2017-04-15] MEDS: MONTELUKAST 10 MG TABLET PER TUBE SCH (09:08)
[2017-04-15] MEDS: POTASSIUM CHLORIDE 20 MEQ/15 ML UDCUP PO SCH ×2 (09:08→22:30)
[2017-04-15] MEDS: amLODIPine 10 MG TABLET PEG SCH (09:08)
[2017-04-15] MEDS: predniSONE 5 MG TABLET PEG SCH (09:08)
[2017-04-15] MEDS: hydrALAZINE 25 MG TABLET PO SCH ×2 (09:08→22:30)
[2017-04-15] MEDS: CLOTRIMAZOLE 1% CREAM 15 GM TUBE TOP SCH ×2 (09:09→22:30)
[2017-04-15] MEDS: COLLAGENASE OINT 30 GM TUBE TOP SCH (09:09)
[2017-04-15] MEDS: VANCOMYCIN INJ 1,000 MG in SODIUM CHLORIDE 0.9% 250 ML IV SCH (17:07)
[2017-04-15] MEDS: SERTRALINE 25 MG TABLET PEG SCH (22:30)
[2017-04-16] MEDS: ALBUTEROL/IPRATROPIUM 3 ML NEB RESP TX SCH ×3 (01:00→14:39)
[2017-04-16] MEDS: PIPERACILLIN/TAZOBACTAM 3,375 MG in SODIUM CHLORIDE 0.9% 100 ML IV SCH ×3 (02:40→18:25)
[2017-04-16 05:13] LABS: Basophils % 0.2 % (0.0-0.8); Eosinophils # 0.2 10*3/uL (0.0-0.87); Eosinophils % 1.4 % (0.00-10.9); Hemoglobin 9.5 GM/DL (14.0-18.0); Immature Granulocytes % 1.3 %; Immature Granulocytes Absolute 0.14 #; Lymphocytes # 0.6 10*3/uL (1.4-4.0); Lymphocytes % 5.4 % (21.2-54.2); Mean Corpuscular HGB Conc 31.7 GM/DL (32-36); Mean Corpuscular Hemoglobin 27 PG (27-34); Mean Platelet Volume 11.4 FL (9.6-12.0); Monocytes # 0.5 10*3/uL (0.11-0.8); Monocytes % 4.6 % (1.7-12.7); NRBC # 0.06 10*3/uL; Neutrophils # 9.1 10*3/uL (1.4-7.4); Neutrophils % 87.1 % (38.7-73.9); Platelet Count 266 T/CUMM (130-400); Red Blood Count 3.49 MC/CUMM (3.8-5.5); Red Cell Distribution Width 19.4 % (9.3-17.3); White Blood Count 10.5 T/CUMM (4-12)
[2017-04-16 05:54] LABS: Calcium 8.5 MG/DL (8.5-10.1); Magnesium 2.1 MG/DL (1.8-2.4); Osmolality,Calculated 274.8 MOS/KG (273-304); Potassium 4.6 MMOL/L (3.5-5.1); Prealbumin 18.7 MG/DL (20-40)
[2017-04-16] MEDS: POTASSIUM CHLORIDE 20 MEQ/15 ML UDCUP PO SCH (09:26)
[2017-04-16] MEDS: PANTOPRAZOLE 40 MG VIAL IV SCH (09:26)
[2017-04-16] MEDS: MONTELUKAST 10 MG TABLET PER TUBE SCH (09:27)
[2017-04-16] MEDS: amLODIPine 10 MG TABLET PEG SCH (09:27)
[2017-04-16] MEDS: hydrALAZINE 25 MG TABLET PO SCH (09:27)
[2017-04-16] MEDS: FERROUS SULFATE 325 MG TABLET PO SCH ×2 (09:27→18:25)
[2017-04-16] MEDS: CLOTRIMAZOLE 1% CREAM 15 GM TUBE TOP SCH (09:27)
[2017-04-16] MEDS: predniSONE 5 MG TABLET PEG SCH (09:27)
[2017-04-16] MEDS: VANCOMYCIN INJ 1,000 MG in SODIUM CHLORIDE 0.9% 250 ML IV SCH (14:49)
[2017-04-16 17:52] VITALS: BP 158/73
[2017-04-16] MEDS: DEXTROSE 5% NACL 0.45% 1,000 ML IV SCH (18:26)
== END 2017-04-16 18:15 | DRG 377 ==
LOC: EDUNIT# → N.ED 17:58 → SUATTDRO 20:31 → N.EDINP 20:31 → N.5E 21:01 → N.TELES 21:21 → N.3E 04-08 11:15
PROVIDERS: ADMIT Internal Medicine; ATTEND Internal Medicine